=== PATIENT | female | born 1965 | race African-American/Black ===

== ENCOUNTER 2018-11-25 16:02 | Observation (INO) | payer OTHER ==
--- OUTSIDE RECORDS SUMMARY | 2018-11-25 16:06 | XMS REPORT | Continuity of Care Document ---
:1965 Author Organization Interface Problems Problem Status Onset Classification Date Comments Source Date Reported UNK Active 09/07/[address] UNK Active 09/07/19 [place] [address] Micky Z12.39 - Active 08/21/19 OPID ENCOUNTER FOR [address] [place] [address] OTH SCREENING FO Z12.31 - ENCNTR Active 06/17/20 OPID SCREEN MAMMOGRAM [address] [place] [address] FOR MA 786.59-CHEST Active 01/25/20 PAIN/789.07-ABD 15 [facility] PAIN/789.04 786.59 789.07 Active 01/20/20 564.[address] [place] [address] Discharge 01/17/20 01/19/2015 Diagnosis: [address] [place] [address] Atypical chest pain CHEST PAIN Active 01/17/[address] Loss of Active 04/14/20 Problem 10/05/2016 Data OPID hair<sup>3</sup> 14 migrated [facility] from [facility] on 12/28/14. Menopausal Active 04/14/20 Problem 10/05/2016 Data OPID flushing<sup>4</ 14 migrated [facility] sup> from [facility] on 12/28/14. LUMBAR SPRAIN Active 10/20/19 Condition 10/22/2013 Medical AND STRAIN 14 Group Migraine<sup>5</ Active 08/05/19 Problem 10/05/2016 Data OPID sup> 14 migrated [facility] from [facility] on 12/28/14. MIGRAINE Active 08/05/19 Condition 10/22/2013 Medical HEADACHE 14 Group HEADACHE Inactive 06/17/20 Condition 10/22/2013 Medical 13 Group Benign essential Active 05/29/20 Problem 10/05/2016 Data OPID hypertension<sup 13 migrated [facility] >1</sup> from [facility] on 12/28/14. Benign Active 05/29/20 Problem 10/05/2016 Data OPID paroxysmal 13 migrated [place], positional from [facility], vertigo<sup>2</s [facility] [place] up> on 12/28/14. BENIGN Active 05/29/20 Condition 10/22/2013 Medical PAROXYSMAL 13 Group POSITIONAL VERTIGO HYPERTENSION, Active 05/29/20 Condition 10/22/2013 Medical BENIGN 13 Group ESSENTIAL, UNCONTROLLED GERD (<span Resolved Problem 10/05/2016 OPID ID="[id number]" [facility] >Confirmed</span [place] >) HLD (<span Resolved Problem 10/05/2016 OPID ID="[id number]" [facility] >Confirmed</span [place] >) Hypertension Active Problem 10/05/2016 OPID [place],[facility] Obesity Active Problem 10/05/2016 OPID [place],[facility] Hypokalemia Resolved Problem 01/19/2015 [facility] Tonsillectomy Resolved Problem 01/19/2015 [facility] BMI Active Problem 10/05/2016 34.0-34.9,adult [place], OPID [place] Breast cancer Active Problem 10/05/2016 screening [place] [place] Well adult exam Active Problem 10/05/2016 [facility] LUMBAR Active SMR STRAIN-UDU [facility] CHEST PAIN NOS Active [facility] Medications Medication Details Route Status Patient Ordering Order Source Instructions Provider Date Sodium Chloride 1,000 mL, Inactive 0.154 MEQ/ML Rate: 2016 [place] Injectable ml/hr, Infuse Solution over: 47.6 hr, Route: IV, Dosing Weight 78.182 kg, Total Volume: 1,000, 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 date: 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, 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: 30 day, Stop date: 10/21/16 6:29:00 CDT Acetaminophen 325 1 tab, Route: Inactive MG / Hydrocodone PO, Drug Form: 2014 [facility] Bitartrate 5 MG TAB, Dosing Oral Tablet [Stewart Weight 72.727, 5/325] kg, ONCE, STAT, Start date: 01/16/15 13:02:00, Stop date: 01/16/15 13:02:00 GI cocktail 30 mL, Route: Inactive PO, Dosing 2014 [facility] Weight 72.727, kg, ONCE, STAT, Start date: 01/16/15 12:36:00, Stop date: 01/16/15 12:36:00 Potassium Chloride 40 mEq, 2 tab, Inactive 20 MEQ Extended Route: PO, 2014 [place] Release Tablet Drug form: ERTAB, ONCE, Dosing Weight 72.727, kg, Priority: STAT, Start date: 01/16/15 12:34:00, Stop date: 01/16/15 12:34:00 Zofran 4 mg, Route: Inactive IVP, Drug 2014 [facility] form: INJ, ONCE, Dosing Weight 72.727, kg, Priority: STAT, Start date: 01/16/15 11:33:00, Stop date: 01/16/15 11:33:00 Morphine 4 mg, Route: Inactive IVP, Drug 2014 [facility] form: INJ, ONCE, Dosing Weight 72.727, kg, Priority: STAT, Start date: 01/16/15 11:33:00, Stop date: 01/16/15 11:33:00 Aspirin 81 MG 324 mg, 4 tab, Inactive Chewable Tablet Route: CHEW, 2014 [facility] Drug form: CHEWTAB, ONCE, Dosing Weight 72.727, kg, Priority: STAT, Start date: 01/16/15 11:19:00, Stop date: 01/16/15 11:19:00Notes: Take with food. Sodium Chloride 1,000 mL, 1000 Inactive 0.154 MEQ/ML ml/hr, Infuse 2014 [facility] Injectable Over: 1 hr, Solution Route: IV, 1,000, Drug form: INJ, ONCE, Priority: STAT, Dosing Weight 72.727 kg, Start date: 01/16/15 11:19:00, Duration: 1 doses or times, Stop date: 01/16/15 11:19:00 Saline Flush 0.9% 10 mL, Route: No Longer IVP, Drug Active 2014 [facility] Form: INJ, Dosing Weight 72.727, kg, PRN, PRN Line Flush, Start date: 01/16/15 11:18:00, Duration: 30 day, Stop date: 02/15/15 11:17:00Notes: (Same as: BD Posiflush) Potassium Chloride 20 mEq=1 tab, Active 20 MEQ Extended PO, BID, 0 2014 [facility] Release Tablet Refill(s) [Klor-Con] Chlorthalidone 25 mg, PO, Active Daily, 0 2014 Refill(s) lisinopril 20 mg 20 mg=1 tab, Active oral tablet PO, BID, 0 2014 Refill(s) pneumococcal 0.5 mL, Route: Inactive capsular IM, Drug Form: 2014 polysaccharide INJ, Daily, type 1 vaccine / Start date: pneumococcal 01/02/15 capsular 9:00:00, polysaccharide Duration: 1 type 10A vaccine / doses or pneumococcal times, Stop capsular date: 01/02/15 polysaccharide 9:00:00Notes: type 11A vaccine / (Same as: pneumococcal Pneumovax 23) capsular Refrigerate polysaccharide type 12F vaccine / pneumococcal capsular polysacchar Protonix 40 mg, Route: Inactive IVP, Drug 2014 [facility] form: INJ, Daily, Dosing Weight 72.727, kg, Start date: 01/02/15 9:00:00, Duration: 30 day, Stop date: 01/31/15 9:00:00Notes: For IV push reconstitute with 10 ml 0.9% sodium chloride and push over 2 minutes. (Same as: Protonix) Aspirin 81 mg, 1 tab, Inactive Route: PO, 2014 [facility] Drug form: ECTAB, Daily, Dosing Weight 72.727, kg, Start date: 01/02/15 9:00:00, Duration: 30 day, Stop date: 01/31/15 9:00:00Notes: Do not crush or chew. (Same As: Ecotrin) Zofran 4 mg, 2 mL, No Longer Route: IV, Active 2014 [facility] Drug form: INJ, Q6H, Dosing Weight 72.727, kg, PRN Nausea, Start date: 01/01/15 23:19:00, Duration: 30 day, Stop date: 01/31/15 23:18:00Notes: (Same as: Zofran) MEDICATION WASTE Product Size: 4 mg Product Wasted: ___ mg Saline Flush 0.9% 10 ml, Route: No Longer IVP, Drug Active 2014 [facility] Form: INJ, Dosing Weight 72.727, kg, Q12H, Start date: 01/01/15 21:00:00, Duration: 30 day, Stop date: 01/31/15 9:00:00Notes: (Same as: BD Posiflush) Lovenox 70 mg, 0.7 mL, No Longer Route: SUB-Q, Active 2014 [facility] Drug form: INJ, [id number], Dosing Weight 72.727, kg, Start date: 01/01/15 18:00:00, Duration: 30 day, Stop date: 01/31/15 6:00:00Notes: Nurse to ensure documentation of patient education per anticoagulatio n policy. (Same as: Lovenox) Ambien 5 mg, 1 tab, No Longer Route: PO, Active 2014 [facility] Drug form: TAB, Bedtime, Dosing Weight 72.727, kg, PRN Insomnia, Start date: 01/01/15 17:36:00, Duration: 30 day, Stop date: 01/31/15 17:35:00Notes: (Same As: Ambien) Tylenol 650 mg, 2 tab, No Longer Route: PO, Active 2014 [facility] Drug form: TAB, Q6H, Dosing Weight 72.727, kg, PRN Pain Score 1-5, Start date: 01/01/15 17:36:00, Duration: 30 day, Stop date: 01/31/15 17:35:00Notes: Do not exceed 4 gm/day. (Same as: Tylenol) Ondansetron 0.8 4 mg, 5 mL, No Longer MG/ML Oral Route: PO, Active 2014 [facility] Solution [Zofran] Drug form: SOLN, Q4H, Dosing Weight 72.727, kg, PRN Nausea & Vomiting, Priority: STAT, Start date: 01/01/15 17:36:00, Duration: 30 day, Stop date: 01/31/15 17:35:00Notes: (Same as: Zofran) Saline Flush 0.9% 10 ml, Route: No Longer IVP, Drug Active 2014 [facility] Form: INJ, Dosing Weight 72.727, kg, PRN, PRN Line Flush, Start date: 01/01/15 15:40:00, Duration: 30 day, Stop date: 01/31/15 15:39:00Notes: (Same as: BD Posiflush) Nitroglycerin 0.4 mg, 1 tab, No Longer Route: SL, Active 2014 [facility] Drug form: TAB, Q5Min, Dosing Weight 72.727, kg, PRN Chest Pain, Start date: 01/01/15 15:40:00, Duration: 3 doses or times, Stop date: Limited # of timesNotes: (Same as:Nitroquick, Nitrostat) "Do Not Crush" Sublingual tablet Morphine 2 mg, 1 mL, Inactive Route: IVP, 2014 [facility] Drug form: INJ, Q15Min, Dosing Weight 72.727, kg, PRN Chest Pain, Start date: 01/01/15 15:40:00, Duration: 2 doses or times, Stop date: Limited # of timesNotes: (Same as:MORPhine Sulfate) Zofran 4 mg, Route: Inactive IVP, Drug 2014 [facility] form: INJ, ONCE, Dosing Weight 72.727, kg, Priority: STAT, Start date: 01/01/15 13:07:00, Stop date: 01/01/15 13:07:00 Morphine 4 mg, Route: Inactive IVP, Drug 2014 [facility] form: INJ, ONCE, Dosing Weight 72.727, kg, Priority: STAT, Start date: 01/01/15 13:06:00, Stop date: 01/01/15 13:06:00 Flexeril 10 mg, Route: Inactive PO, ONCE, 2014 Dosing Weight 72.727, kg, Priority: STAT, Start date: 01/01/15 11:29:00, Stop date: 01/01/15 11:29:00 Ketorolac 30 mg, Route: Inactive IVP, Drug 2014 [facility] form: INJ, ONCE, Dosing Weight 72.727, kg, Priority: STAT, Start date: 01/01/15 11:28:00, Stop date: 01/01/15 11:28:00 Aspirin 324 mg, Route: Inactive PO, ONCE, 2014 Dosing Weight 72.727, kg, Priority: STAT, Start date: 01/01/15 11:08:00, Stop date: 01/01/15 11:08:00 Saline Flush 0.9% 10 mL, Route: Inactive IVP, Drug 2014 Form: INJ, Dosing Weight 72.727, kg, PRN, PRN Line Flush, Start date: 01/01/15 11:08:00, Duration: 30 day, Stop date: 01/31/15 11:07:00Notes: (Same as: BD Posiflush) METHYLPREDNISOLONE Take as Active 10/19[facility] Medical (MARCI) 4 MG TABS directed 2013 Group NAPROXEN 500 MG 1 tablet twice Active 10/19[facility] Medical TABS daily as 2013 Group needed for pain BACLOFEN 10 MG 1 tablet every Active 10/19[facility] Medical TABS 8 hours as 2013 Group needed for muscle spasms or tension LISINOPRIL 20 MG Two tabs PO Active 07/16[facility] Medical TABS qday 2012 Group CARVEDILOL 25 MG One tab PO BID Active Medical TABS 2012 Group CHLORTHALIDONE 25 One tab PO Active Medical MG TABS qday 2012 Group ANTIVERT 25 MG One tab PO TID No Longer Medical TABS prn vertigo Active 2012 Group ZOFRAN 4 MG TABS One tab PO q6 No Longer Medical hous prn Active 2012 Group nausea FLUTICASONE 2 sprays in No Longer Medical PROPIONATE 50 each nostril Active 2012 Group MCG/ACT SUSP qam1 ANTIPYRINE-BENZOCA No Longer Medical INE 54-14 MG/ML Active 2012 Group SOLN Allergies, Adverse Reactions, Alerts Substance Category Reaction Severity Reaction Status Date Comments Source type Reported Immunizations Immunization Date Site Status Last Comments Source Given Updated influenza virus Left completed [facility] OPID vaccine, 5 Deltoid [facility] inactivated [place] pneumococcal Left completed [place] OPID 23-valent 5 deltoid [facility] vaccine [employer] Results Order Name Results Value Reference Date Interpretation Comments Source Range Digital Digital - DIGITAL MAMMO SCREEN THEODORE MA W YOLANDA 10/02 - OPID Mammo Mammo Screen /2016 - [place] Screen Theodore Theodore MA w BILATERAL DIGITAL SCREENING MAMMOGRAM 3D/2D WITH CAD: 10/02 DANIEL bravo yolanda yolanda 2D digital mammographic images and 3D digital tomosynthesis images were obtained in the CC and MLO projections. Read by: Neal Luu MD Dictated Date/time: 10/02/16 15:10 Current study was evaluated with a Computer Aided Detection (CAD) system. Electronically Signed by: Neal Luu MD 02/11 15:10 FINAL REPORT Comparison is made to exam dated: 06/30/2015 mammogram - [facility]. The tissue of both breasts is extremely dense. This may lower the sensitivity of mammography. No significant masses, calcifications, or other findings are seen in either breast. There has been no significant interval change. IMPRESSION: NEGATIVE There is no mammographic evidence of malignancy. A 1 year screening mammogram is recommended. Professional services are provided by the [facility] of Diagnostic Imaging. Eliseo Erwin M.D. cm/penrad:10/02/2016 15:10:37 Dental Office Coordinator: Nhi Sherwood [facility] This exam was dictated and interpreted by [id number] for EVERTON Huffman, 15. letter sent: Normal [place] Mammogram BI-RADS: 1 Negative URINE CHEM U Preg Negative Negative 09/21 [place] (09/21/16 6:19 AM) ELECTROLYT AGAP 9.7 meq/L 10.0 - 09/17 MH ES 20.0 [place] ELECTROLYT Chloride Lvl 108 meq/L 95 - 109 09/17 ES [place] ELECTROLYT Sodium Lvl 144 meq/L 135 - 145 09/17 ES [place] ELECTROLYT Potassium 3.7 meq/L 3.5 - 5.1 09/17 ES Lvl [place] ELECTROLYT CO2 30 meq/L 24 - 32 09/17 ES [place] URINE CHEM U Preg Negative Negative 09/17 [place] (09/17/16 1:50 PM) Digital Digital - DIGITAL MAMMO SCREENING THEODORE MA 06/30 - OPID Mammo Mammo /2014 - [place] Screening Screening BILATERAL FIRST EVER DIGITAL SCREENING MAMMOGRAM WITH CAD : 06/30/2015 Theodore Jaimes MA CLINICAL: Screening. Read by: Neal Luu MD Dictated Date/time: 07/01/15 08:49 Electronically Signed by: Neal uLu MD 07/01/15 08:49 FINAL REPORT Current study was evaluated with a Computer Aided Detection (CAD) system. There are no comparison films available as this is the patient's baseline mammogram. The tissue of both breasts is extremely dense. This may lower the sensitivity of mammography. No significant masses, calcifications, or other findings are seen in either breast. IMPRESSION: NEGATIVE There is no mammographic evidence of malignancy. A 1 year screening mammogram is recommended. Eliseo Erwin M.D. cm/penrad:07/01/2015 08:49:46 Dental Office Coordinator: Fransisca WELCH(R)(M), [facility] This exam was dictated and interpreted by [id number] for EVERTON Huffman, 15. letter sent: Normal exam Mammogram BI-RADS: 1 Negative URINE AND UA <=1.0 0.1 - 1.0 01/16 STOOL Urobilinogen mg/dL [facility] URINE AND UA Color Ltyellow 01/16 STOOL [facility] URINE AND UA WBC null 0 - 5 01/16 STOOL [facility] URINE AND UA Sq Epi Occasional Few /LPF 01/16 [facility] /LPF /2014 [place] URINE AND UA Leuk Est Negative Negative 01/16 STOOL [facility] (01/16/15 12:13 PM) URINE AND UA Nitrite Negative Negative 01/16 STOOL [facility] (01/16/15 12:13 PM) URINE AND UA Blood Negative Negative 01/16 [facility] (01/16/15 12:13 PM) URINE AND UA Bacteria Occasional None Seen 01/16 [facility] /HPF /HPF /2014 [place] URINE AND UA Glucose Negative Negative 01/16 [facility] mg/dL mg/dL [place] URINE AND UA Protein Negative Negative 01/16 [facility] mg/dL mg/dL [place] URINE AND UA pH 7.0 5.0 - 8.0 01/16 STOOL [place] URINE AND UA Spec Grav 1.004 <=1.030 01/16 STOOL [facility] URINE AND UA Turbidity Clear Clear 01/16 STOOL [facility] (01/16/15 12:13 PM) URINE AND UA Bili Negative Negative 01/16 STOOL [facility] *NA* (01/16/15 12:13 PM) URINE AND UA Ketones Negative Negative 01/16 STOOL mg/dL mg/dL [facility] URINE CHEM U Preg Negative Negative 01/16 [facility] (01/16/15 12:13 PM) CARDIAC CK MB Index null 0.0 - 2.5 01/16 ENZYMES [facility] CARDIAC Total CK 161 unit/L 12 - 191 01/16 ENZYMES [facility] CARDIAC Troponin-I null 0.00 - 01/16 [facility] 0.40 [facility] CARDIAC CK MB null 0.5 - 3.6 01/16 [facility] CHEM PANEL eGFR 49 01/16 1Result Comment: The eGFR is calculated using the CKD-EPI formula. In most young, healthy individuals the eGFR will be >90 mL/ min/1.73m2. The eGFR declines with age. An eGFR of 60-89 may be normal in mL/min/1.7 /2014 some populations, particularly the elderly, for whom the CKD-EPI formula has not been extensively validated. Use of the eGFR is not recommended in the following populations: [facility] 3m2 Individuals with unstable creatinine concentrations, including patients and those with serious co-morbid conditions. Patients with extremes in muscle mass or diet. The data above are obtained from the National Kidney Disease Education Program (NKDEP) which additionally recommends that when the eGFR is used in patients with extremes of body mass index for purposes of drug dosing, the eGFR should be multiplied by the estimated BMI. CHEM PANEL Bili Total 0.4 mg/dL 0.2 - 1.3 01/16 [facility] CHEM PANEL Alk Phos 69 unit/L 39 - 136 01/16 [facility] CHEM PANEL ALT 19 unit/L 0 - 65 01/16 [facility] CHEM PANEL AST 18 unit/L 0 - 37 01/16 [facility] CHEM PANEL AGAP 10.3 meq/L 10.0 - 01/16 20.0 [facility] CHEM PANEL Globulin 3.7 g/dL 2.0 - 4.0 01/16 [facility] CHEM PANEL B/C Ratio 11 6 - 25 01/16 [facility] CHEM PANEL A/G Ratio 1.0 0.7 - 1.6 01/16 [facility] CHEM PANEL Albumin Lvl 3.7 g/dL 3.5 - 5.0 01/16 [facility] CHEM PANEL Total 7.4 g/dL 6.4 - 8.4 01/16 [facility] CHEM PANEL Glucose Lvl 86 mg/dL 70 - 99 01/16 2Interpretive Data: Adult reference range values reflect the clinical guidelines of the [place] [employer]. [facility] CHEM PANEL CO2 28 meq/L 24 - 32 01/16 [facility] CHEM PANEL Creatinine 1.3 mg/dL 0.5 - 1.4 01/16 Lvl /2014 [facility] CHEM PANEL BUN 14 mg/dL 7 - 22 01/16 [facility] CHEM PANEL Sodium Lvl 139 meq/L 135 - 145 01/16 [facility] CHEM PANEL Calcium Lvl 9.2 mg/dL 8.5 - 10.5 01/16 [facility] CHEM PANEL Chloride Lvl 104 meq/L 95 - 109 01/16 [facility] CHEM PANEL Potassium 3.3 meq/L 3.5 - 5.1 01/16 Lvl /2015 [facility] HEMATOLOGY Segs 44.1 % 45.0 - 01/16 MH 75.0 /2014 [facility] HEMATOLOGY Lymphocytes 43.4 % 20.0 - 01/16 MH 40.0 /2014 [facility] HEMATOLOGY Segs-Bands # 2.7 K/CMM 1.5 - 8.1 01/16 [facility] HEMATOLOGY Monocytes # 0.6 K/CMM 0.0 - 0.8 01/16 [facility] HEMATOLOGY Eosinophils 0.1 K/CMM 0.0 - 0.5 01/16 MH # /2015 [facility] HEMATOLOGY Lymphocytes 2.7 K/CMM 1.0 - 5.5 01/16 MH # /2014 [facility] HEMATOLOGY Basophils 0.7 % 0.0 - 1.0 01/16 [facility] HEMATOLOGY Monocytes 10.1 % 2.0 - 12.0 01/16 [facility] HEMATOLOGY Eosinophils 1.7 % 0.0 - 4.0 01/16 /2014 [facility] HEMATOLOGY MCV 87.3 fL 80.0 - 01/16 MH 98.0 /2014 [facility] HEMATOLOGY Hgb 12.6 g/dL 12.0 - 01/16 16.0 /2014 [facility] HEMATOLOGY Hct 36.5 % 36.0 - 01/16 48.0 /2014 [facility] HEMATOLOGY RDW 12.9 % 11.5 - 01/16 14.5 /2014 [facility] MCH 30.1 pg 27.0 - 01/16 31.0 /2014 [facility] Platelet 281 K/CMM 133 - 450 01/16 /2014 [facility] MPV 8.2 fL 7.4 - 10.4 01/16 [facility] MCHC 34.5 g/dL 32.0 - 01/16 36.0 /2014 [facility] WBC 6.1 K/CMM 3.7 - 10.4 01/16 [facility] RBC 4.19 M/CMM 4.20 - 01/16 5.40 /2014 [facility] INR 0.94 0.85 - 01/16 3Interpretive Data: RECOMMENDED RANGES FOR PROTIME INR: 1. 2.0-3.0 for most medical and surgical thromboembolic states. [facility] 2.5-3.5 for artificial heart valves and recurrent embolism. INR SHOULD BE USED ONLY FOR PATIENTS ON STABLE ANTICOAGULANT THERAPY. HEMATOLOGY PT 12.6 s 12.0 - 01/16 14.7 /2014 [facility] HEMATOLOGY PTT 31.8 s 22.9 - 01/16 4Interpretive 35.8 /2014 Data: Heparin [facility] Therapeutic Range: 57 - 92 Seconds Chest Chest 1view NAME: JAROCHO PRICE 01/16 - 1view DX DX - [facility] : 1965 SEX: F Ordering Physician: Sree Camargo Read by: Joshua Darnell MD Dictated Date/time: 01/16/15 11:33 Electronically Signed by: Joshua Darnell MD 01/16/15 11:33 FINAL REPORT Chest 1view : Jan 16, 2015 11:18:00 AM. CLINICAL INDICATION: Chest pain. Comparison Examination: 01/01/2015. FINDINGS: Cardiac and mediastinal structures are stable. No focal infiltrate identified within the lungs, no edema and no pneumothorax. SL: 14 ENDOCRINOL S Preg Negative Negative 01/02 OG [facility] *NA* (01/02/15 8:53 AM) Cardiac Cardiac Test Location is SE 01/02 - SPECT SPECT multi /2014 - [facility] studies NM studies NM The patient underwent combined treadmill and Lexiscan Cardiolite stress testing according to the stress/rest protocol. The patient was then injected with 11 mCi of Cardiolite at stress and 33 mCi of Cardiolite at rest. Read by: Buck Ramirez MD Dictated Date/time: 01/02/15 16:38 Electronically Signed by: Buck Ramirez MD 01/02/15 16:39 FINAL REPORT Transverse, coronal, and sagittal images were obtained. Review of stress and rest images revealed normal myocardial perfusion. Ejection fraction by SPECT analysis was 66%. The baseline ECG showed NSR. No significant ECG or hemodynamic changes were observed. In summary, this represents a normal myocardial perfusion study with normal LV function. LIPIDS VLDL 23 01/02 /2014 [facility] LIPIDS LDL 82 mg/dL <=99 mg/dL 01/02 (Calculated) [facility] LIPIDS CHD Risk 3.33 3.90 - 01/02 5.80 /2014 [facility] LIPIDS Trig 114 mg/dL <=149 / mg/dL /2014 [facility] LIPIDS Chol 150 mg/dL <=199 / mg/dL /2014 [facility] LIPIDS HDL 45 mg/dL >=61 mg/dL 01/02 /2014 [facility] CARDIAC Troponin-I null 0.00 - 01/02 [facility] 0.40 /2014 [facility] CARDIAC Total CK 51 unit/L - 01/02 ENZYMES /2014 [facility] CARDIAC Total CK 55 unit/L - 01/01 ENZYMES /2014 [facility] CARDIAC Troponin-I null 0.00 - 01/01 [facility] 0.40 /2014 [facility] LIPIDS VLDL 16 01/01 /2014 [facility] LIPIDS CHD Risk 3.35 3.90 - 01/01 5.80 /2014 [facility] LIPIDS HDL 49 mg/dL >=61 mg/dL 01/01 /2014 [facility] LIPIDS Chol 164 mg/dL <=199 / MH mg/dL /2014 [facility] LIPIDS Trig 81 mg/dL <=149 / MH mg/dL /2014 [facility] LIPIDS LDL 99 mg/dL <=99 mg/dL 01/01 MH (Calculated) /2014 [facility] CARDIAC CK MB null 0.5 - 3.6 01/01 ENZYMES /2014 [facility] CARDIAC Total CK 70 unit/L - 01/01 ENZYMES /2014 [facility] CARDIAC Troponin-I null 0.00 - 01/01 [facility] 0.40 /2014 [facility] CARDIAC BNP 4 pg/mL <=100 01/01 3Interpretive Data: Elevated results are in line with increasing severity of ENZYMES pg/mL /2014 congestive heart failure. Minor elevations between 100 and 300 [place] may be seen with Myocardial Ischemia, Sodium retaining drugs, and compensated/treated heart failure. CARDIAC CK MB Index null 0.0 - 2.5 01/01 ENZYMES [facility] CHEM PANEL Phosphorus 2.6 mg/dL 2.5 - 4.5 01/01 [facility] CHEM PANEL Magnesium 2.2 mg/dL 1.8 - 2.4 01/01 Lvl /2014 [facility] CHEM PANEL A/G Ratio 1.0 0.7 - 1.6 01/01 [facility] CHEM PANEL B/C Ratio 12 6 - 25 01/01 [facility] CHEM PANEL Globulin 3.6 g/dL 2.0 - 4.0 01/01 [facility] CHEM PANEL AGAP 10.8 meq/L 10.0 - 01/01 20.0 [facility] CHEM PANEL Bili Total 0.5 mg/dL 0.2 - 1.3 01/01 [facility] CHEM PANEL CO2 32 meq/L 24 - 32 01/01 [facility] CHEM PANEL BUN 17 mg/dL 7 - 22 01/01 [facility] CHEM PANEL Glucose Lvl 71 mg/dL 70 - 99 01/01 2Interpretive Data: Adult reference range values reflect the clinical guidelines of the [place] [employer]. [facility] CHEM PANEL Alk Phos 69 unit/L 39 - 136 01/01 [facility] CHEM PANEL ALT 16 unit/L 0 - 65 01/01 [facility] CHEM PANEL AST 15 unit/L 0 - 37 01/01 [facility] CHEM PANEL Total 7.2 g/dL 6.4 - 8.4 01/01 Protein [facility] CHEM PANEL Albumin Lvl 3.6 g/dL 3.5 - 5.0 01/01 [facility] CHEM PANEL eGFR 44 01/01 1Result Comment: The eGFR is calculated using the CKD-EPI formula. In most young, healthy individuals the eGFR will be >90 mL/ min/1.73m2. The eGFR declines with age. An eGFR of 60-89 may be normal in mL/min/1.7 /2014 some populations, particularly the elderly, for whom the CKD-EPI formula has not been extensively validated. Use of the eGFR is not recommended in the following populations: [facility] 3m2 Individuals with unstable creatinine concentrations, including patients and those with serious co-morbid conditions. Patients with extremes in muscle mass or diet. The data above are obtained from the National Kidney Disease Education Program (NKDEP) which additionally recommends that when the eGFR is used in patients with extremes of body mass index for purposes of drug dosing, the eGFR should be multiplied by the estimated BMI. CHEM PANEL Calcium Lvl 9.0 mg/dL 8.5 - 10.5 01/01 [facility] CHEM PANEL Potassium 3.8 meq/L 3.5 - 5.1 01/01 [facility] CHEM PANEL Sodium Lvl 141 meq/L 135 - 145 01/01 [facility] CHEM PANEL Creatinine 1.4 mg/dL 0.5 - 1.4 01/01 Lv [facility] CHEM PANEL Chloride Lvl 102 meq/L 95 - 109 01/01 [facility] HEMATOLOGY INR 1.06 0.85 - 01/01 4Interpretive Data: RECOMMENDED RANGES FOR PROTIME INR: 1. 2.0-3.0 for most medical and surgical thromboembolic states. [facility] 2.5-3.5 for artificial heart valves and recurrent embolism. INR SHOULD BE USED ONLY FOR PATIENTS ON STABLE ANTICOAGULANT THERAPY. HEMATOLOGY PTT 30.8 s 22.9 - 01/01 5Interpretive 35.8 /2014 Data: Heparin [facility] Therapeutic Range: 57 - 92 Seconds HEMATOLOGY PT 13.8 s 12.0 - 01/01 MH 14.7 [facility] HEMATOLOGY MPV 7.5 fL 7.4 - 10.4 01/01 [facility] HEMATOLOGY Platelet 294 K/CMM 133 - 450 01/01 [facility] HEMATOLOGY RDW 12.4 % 11.5 - 01/01 MH 14.5 [facility] HEMATOLOGY MCHC 33.4 g/dL 32.0 - 01/01 MH 36.0 [facility] HEMATOLOGY Hgb 13.3 g/dL 12.0 - 01/01 MH 16.0 [facility] HEMATOLOGY RBC 4.54 M/CMM 4.20 - 01/01 MH 5.40 /2014 [facility] HEMATOLOGY Hct 39.8 % 36.0 - 01/01 MH 48.0 /2014 [facility] HEMATOLOGY WBC 5.6 K/CMM 3.7 - 10.4 01/01 /2014 [facility] HEMATOLOGY MCH 29.3 pg 27.0 - 01/01 MH 31.0 /2014 [facility] HEMATOLOGY MCV 87.6 fL 80.0 - 01/01 MH 98.0 /2014 [facility] HEMATOLOGY Basophils 0.8 % 0.0 - 1.0 01/01 /2014 [facility] HEMATOLOGY Segs-Bands # 2.7 K/CMM 1.5 - 8.1 01/01 [facility] HEMATOLOGY Lymphocytes 2.2 K/CMM 1.0 - 5.5 01/01 MH # /2014 [facility] HEMATOLOGY Monocytes # 0.6 K/CMM 0.0 - 0.8 01/01 /2014 [facility] HEMATOLOGY Eosinophils 0.9 % 0.0 - 4.0 01/01 [facility] HEMATOLOGY Eosinophils 0.1 K/CMM 0.0 - 0.5 01/01 MH # /2014 [facility] HEMATOLOGY Lymphocytes 39.4 % 20.0 - 01/01 MH 40.0 /2014 [facility] HEMATOLOGY Segs 47.7 % 45.0 - 01/01 MH 75.0 /2014 [facility] HEMATOLOGY Monocytes 11.2 % 2.0 - 12.0 01/01 [facility] URINE AND UA <=1.0 0.1 - 1.0 01/01 [facility] Urobilinogen mg/dL /2014 [facility] URINE AND UA Color Ltyellow 01/01 [facility] URINE AND UA Leuk Est Negative Negative 01/01 [facility]OOL [facility] (01/01/15 12:01 PM) URINE AND UA RBC null 0 - 2 01/01 [facility] URINE AND UA Nitrite Negative Negative 01/01 [facility]OOL [facility] (01/01/15 12:01 PM) URINE AND UA Sq Epi Occasional Few /LPF 01/01 [facility] /LPF /2014 [facility] URINE AND UA Bacteria Occasional None Seen 01/01 [facility] /HPF /HPF /2014 [facility] URINE AND UA Glucose Negative Negative 01/01 [facility] mg/dL mg/dL [facility] URINE AND UA Bili Negative Negative 01/01 [facility]OOL [facility] *NA* (01/01/15 12:01 PM) URINE AND UA Ketones Negative Negative 01/01 [facility] mg/dL mg/dL [facility] URINE AND UA Blood Negative Negative 01/01 [facility] /2014 [facility] (01/01/15 12:01 PM) URINE AND UA Turbidity Clear Clear 01/01 [facility]OOL [facility] (01/01/15 12:01 PM) URINE AND UA Protein Negative Negative 01/01 [facility] mg/dL mg/dL [facility] URINE AND UA Spec Grav 1.006 <=1.030 01/01 [facility]OOL [facility] URINE AND UA pH 8.0 5.0 - 8.0 01/01 STOOL /2014 [facility] Chest Chest 1view CHEST RADIOGRAPH SINGLE VIEW 01/01 - 1view DX - [facility] INDICATION: Chest pain Read by: Osman Salinas MD Dictated Date/time: 01/01/15 12:18 Electronically Signed by: Osman Salinas MD 01/01/15 12:18 FINAL REPORT COMPARISON: None IMPRESSION: No acute intrathoracic abnormalities are visualized. SL: 16 Vital Signs Vital Sign Value Date Comments Source Systolic (mm Hg) 142 09/21/2016 [facility] Diastolic (mm Hg) 94 09/21/2016 [facility] Respitory Rate 19 09/21/2016 [facility] Respitory Rate 16 09/21/2016 [facility] Systolic (mm Hg) 147 09/21/2016 [facility] Diastolic (mm Hg) 91 09/21/2016 [facility] Respitory Rate 11 09/21/2016 [facility] Systolic (mm Hg) 112 09/21/2016 [facility] Diastolic (mm Hg) 78 09/21/2016 [facility] Heart Rate 61 09/17/2016 [facility] Temperature Oral (F) 98.9 F 09/17/2016 [facility] BMI Calculated 34.81 09/17/2016 [facility] Height 149.86 cm 09/17/2016 [facility] Weight 78.182 09/17/2016 [facility] Heart Rate 58 01/16/2015 [facility] Systolic (mm Hg) 150 01/16/2015 [facility] Diastolic (mm Hg) 96 01/16/2015 [facility] Systolic (mm Hg) 155 01/16/2015 [facility] Diastolic (mm Hg) 105 01/16/2015 [facility] Heart Rate 77 01/16/2015 [facility] Respitory Rate 20 01/16/2015 [facility] Height 149.86 cm 01/16/2015 [facility] Temperature Oral (F) 97.9 F 01/16/2015 [facility] BMI Calculated 32.38 01/16/2015 [facility] Systolic (mm Hg) 168 01/16/2015 [facility] Diastolic (mm Hg) 136 01/16/2015 [facility] Weight 72.727 01/16/2015 [facility] Respitory Rate 16 01/02/2015 [facility] Heart Rate 63 01/02/2015 [facility] Systolic (mm Hg) 131 01/02/2015 [facility] Diastolic (mm Hg) 83 01/02/2015 [facility] Temperature Oral (F) 98.0 F 01/02/2015 [facility] BMI Calculated 32.38 01/02/2015 [facility] Weight 72.727 01/02/2015 [facility] Height 149.86 cm 01/02/2015 [facility] Systolic (mm Hg) 121 01/02/2015 [facility] Diastolic (mm Hg) 77 01/02/2015 [facility] Respitory Rate 16 01/02/2015 [facility] Heart Rate 53 01/02/2015 [facility] Temperature Oral (F) 97.5 F 01/02/2015 [facility] Heart Rate 61 01/02/2015 [facility] Respitory Rate 18 01/02/2015 [facility] Temperature Oral (F) 97.4 F 01/02/2015 [facility] Systolic (mm Hg) 105 01/02/2015 [facility] Diastolic (mm Hg) 65 01/02/2015 [facility] Weight 72.727 01/01/2015 [facility] BMI Calculated 32.38 01/01/2015 [facility] Height 149.86 cm 01/01/2015 [facility] Height 149.86 cm 01/01/2015 [facility] Weight 72.727 01/01/2015 [facility] BMI Calculated 32.38 01/01/2015 [facility] Weight 171 10/19/2013 [facility] Respitory Rate 18 10/19/2013 [facility] Temperature Oral (F) 96.9 F 10/19/2013 [facility] Heart Rate 46 10/19/2013 [facility] Systolic (mm Hg) 127 10/19/2013 [facility] Diastolic (mm Hg) 72 10/19/2013 [facility] Weight 162 06/17/2013 [facility] Temperature Oral (F) 96.6 F 06/17/2013 [facility] Systolic (mm Hg) 145 06/17/2013 [facility] Diastolic (mm Hg) 86 06/17/2013 [facility] Heart Rate 47 06/17/2013 [facility] Height 60.5 05/29/2013 [facility] Weight 163 05/29/2013 [facility] Temperature Oral (F) 96.9 F 05/29/2013 [facility] Systolic (mm Hg) 195 05/29/2013 [facility] Diastolic (mm Hg) 101 05/29/2013 [facility] Heart Rate 53 05/29/2013 [facility] Encounters Location Location Encounter Encounter Reason Attending ADM DC Status Source Details Type Number For Provider Date Date Visit [facility] [id number] [facility] 10/19 10[facility] [id number] MD L[facility]pez /[facility] Outpatient [id number] _MAPID: Kam 10/19 10/20 Micky [id number] [place] [id number] [facility] [address] [facility] OP Therapy [id number] Fidencio Dawn 10/21 11/20 [facility] Lab Report [id number] Fidencio 10/22 10/22 Micky [id number] MD López /2013 [facility] Inpatient [id number] Buck 01/01 01/02 [place] 0 Tayyan /2014 [facility] EC [id number] Sree 01/16 01/16 [place] Emergency 1 [place] /2014 [facility] Outpatient [id number] RAE 06/06 Active [facility] 0 [facility] Outpt Diag [id number] Rae 06/30 07/01 [facility] 1 Melchor [facility] Outpatient [id number] AKUVPatricio ELHOR 02/09 Active [facility] 1 [place] Outpatient [id number] RAE 08/21 Active [facility] 2 [facility] Bedded [id number] Sri Harinder 09/21 09/21 [place] Outpatient 6 Jada /2016 [facility] Outpt Diag [id number] Rae 10/02 10/03 [facility] 2 Melchor [facility] Outpatient [id number] RAE 01/21 Active [facility] 3 [place] Outpatient [id number] RAE 02/04 Active [facility] 4 MELCHOR /2017 [facility] Outpatient [id number] RAE 04/23 [facility] 5 M[facility] Outpatient [id number] [facility] 08/20 [facility] 6 [place] Procedures Procedure Code Date Perfomer Comments Source section [id number] [facility] Tonsillectomy [id number] [facility] section [id number] [facility] Tonsillectomy [id number] [facility] section [id number] [facility] Tonsillectomy [id number] [facility]
--- OUTSIDE RECORDS SUMMARY | 2018-11-25 16:07 | XMS REPORT | Continuity of Care Document ---
:1965 Author Organization [facility] Care Team Providers Name Role Phone MD Dawn Saul Unavailable Unavailable Insurance Providers Payer name Policy type / Policy ID Covered democrat ID Policy Vyas Coverage type [facility] Encounters Encounter Performer Location Date Lab Report Fidencio Dawn MD [facility] Oct 22, 2013 Problems Problem Effective Dates Problem Status BENIGN PAROXYSMAL POSITIONAL VERTIGO May 29, 2013 Active HYPERTENSION, BENIGN ESSENTIAL, UNCONTROLLED May 29, 2013 Active HEADACHE Jun 17, 2013 Inactive MIGRAINE HEADACHE Aug 05, 2013 Active LUMBAR SPRAIN AND STRAIN Oct 19, 2013 Active Procedures Date Description Comments May 29, 2013 smoking status never smoker Medications Medication Instructions Start Date Status CHLORTHALIDONE 25 MG TABS One tab PO qday Jun 17, 2013 Active LISINOPRIL 20 MG TABS Two tabs PO qday Jul 16, 2013 Active CARVEDILOL 25 MG TABS One tab PO BID Jul 16, 2013 Active ZOFRAN 4 MG TABS One tab PO q6 hous prn May 29, 2013 Inactive nausea FLUTICASONE PROPIONATE 50 MCG/ACT 2 sprays in each nostril May 29, 2013 Inactive SUSP qam1 ANTIVERT 25 MG TABS One tab PO TID prn vertigo Jun 17, 2013 Inactive ANTIPYRINE-BENZOCAINE 54-14 MG/ML May 29, 2013 Inactive SOLN METHYLPREDNISOLONE (MARCI) 4 MG TABS Take as directed Oct 19, 2013 Active NAPROXEN 500 MG TABS 1 tablet twice daily as Oct 19, 2013 Active needed for pain BACLOFEN 10 MG TABS 1 tablet every 8 hours as Oct 19, 2013 Active needed for muscle spasms or tension Vital Signs Date Description Test Result May 29, 2013 height E&M - 8302-2 HEIGHT 60.5 in May 29, 2013 weight E&M - 3141-9 WEIGHT 163 lb May 29, 2013 temperature E&M TEMPERATURE 96.9 deg f May 29, 2013 blood pressure, systolic - 8480-6 BP SYSTOLIC 195 mm Hg May 29, 2013 blood pressure, diastolic - 8462-4 BP DIASTOLIC 101 mm Hg May 29, 2013 pulse rate E&M - 8867-4 PULSE RATE 53 /min Jun 17, 2013 weight E&M - 3141-9 WEIGHT 162 lb Jun 17, 2013 temperature E&M TEMPERATURE 96.6 deg f Jun 17, 2013 blood pressure, systolic - 8480-6 BP SYSTOLIC 145 mm Hg Jun 17, 2013 blood pressure, diastolic - 8462-4 BP DIASTOLIC 86 mm Hg Jun 17, 2013 pulse rate E&M - 8867-4 PULSE RATE 47 /min Oct 19, 2013 weight E&M - 3141-9 WEIGHT 171 lb Oct 19, 2013 respiratory rate E&M - 9279-1 RESP RATE 18 /min Oct 19, 2013 temperature E&M TEMPERATURE 96.9 deg f Oct 19, 2013 pulse rate E&M - 8867-4 PULSE RATE 46 /min Oct 19, 2013 blood pressure, systolic - 8480-6 BP SYSTOLIC 127 mm Hg Oct 19, 2013 blood pressure, diastolic - 8462-4 BP DIASTOLIC 72 mm Hg
--- OUTSIDE RECORDS SUMMARY | 2018-11-25 16:07 | XMS REPORT | Continuity of Care Document ---
:1965 Author Organization [facility] Care Team Providers Name Role Phone MD Dawn Saul Unavailable Unavailable Insurance Providers Payer name Policy type / Policy ID Covered constitution party ID Policy Vyas Coverage type [facility] Encounters Encounter Performer Location Date Office Visit Fidencio Dawn MD [facility] Oct 19, 2013 Problems Problem Effective Dates Problem Status [...]
--- OUTSIDE RECORDS SUMMARY | 2018-11-25 16:07 | XMS REPORT ---
:1965 Author Organization [employer] Care Team Providers Name Role Phone Jessica Evangelista Provider Role Unavailable Allergies No Known Allergies Problems Problem Type Condition Code Onset Dates Condition Status Problem Hot flashes R23.2 Active Problem Perimenopausal N95.1 Active Medications No Known Medications Results No Known Results Summary Purpose [employer] Submission
[2018-11-25 16:55] LABS: Absolute Lymphocytes (CBC) 2.4 K/uL (0.7-4.9); Absolute Monocytes 0.6 K/uL (0.1-1.3); Absolute Neutrophil 3.3 K/uL (1.8-8.0); Basophils % 0.9 % (0-1.3); Eosinophils % 1.5 % (0-4.4); Hematocrit 41.1 % (36.0-45.0); Lymphocytes % 36.7 % (15.3-44.8); MPV 7.9 fL (7.6-11.3); Monocytes % 9.8 % (3.3-12.3); RBC Red Blood Cell Count 4.81 M/uL (3.86-4.86)
[2018-11-25 17:06] LABS: Protime INR 0.96
[2018-11-25 17:11] LABS: ALT/SGPT 17 U/L (12-78); AST/SGOT 18 U/L (15-37); Albumin 3.8 g/dL (3.4-5.0); Alkaline Phosphatase 94 U/L (45-117); BUN Blood Urea Nitrogen 13 mg/dL (7-18); Bicarbonate 29 mmol/L (21-32); Bilirubin Direct < 0.1 mg/dL (0-0.2); Bilirubin Total 0.4 mg/dL (0.2-1.0); Glucose Level 91 mg/dL (74-106); Magnesium 2.4 mg/dL (1.8-2.4); NT PRO-BNP 52 pg/mL (<125); Potassium 3.6 mmol/L (3.5-5.1); Protein, Total 7.6 g/dL (6.4-8.2); Sodium Level 141 mmol/L (136-145); Troponin (Emerg Dept Use Only) < 0.02 ng/mL (0.0-0.045)
--- NOTE | 2018-11-25 17:31 | RAD REPORT ---
EXAM DESCRIPTION: [place] Single View11/25/2018 5:13 pm CLINICAL HISTORY: Chest pain COMPARISON: July 2017 FINDINGS: The lungs appear clear of acute infiltrate. The heart is normal size IMPRESSION: No acute abnormalities displayed
--- NOTE | 2018-11-25 17:41 | RAD REPORT ---
EXAM DESCRIPTION: USExtrem Venous W Compress Bil11/25/2018 5:08 pm CLINICAL HISTORY: Bilateral leg swelling COMPARISON: none FINDINGS: The common femoral, superficial femoral, popliteal and posterior tibial veins bilaterally are compressible and demonstrate augmentation. Doppler demonstrates good flow. IMPRESSION: No evidence of deep venous thrombosis involving either lower extremity.
[2018-11-25] MEDS ORDERED: PROMETHAZINE 25 MG/ML VIAL ONE (17:44)
[2018-11-25] MEDS ORDERED: ASPIRIN 81 MG CHEWABLE TABLET ONE (17:53)
--- NOTE | 2018-11-25 18:43 | ER ---
Nurse's Notes [facility] Name: Renea Mcmahan Age: 53 yrs Sex: Female : 1965 Arrival Date: 11/25/2018 Time: 16:05 Bed 27 Private MD: Out, [facility] Diagnosis: Chest pain, unspecified Presentation: 11/25 16:10 Presenting complaint: Patient states: this pain in my chest started 3 days ago and the tw2 numbness in my right arm happened the same day, and then after i worked out today it got worse plus the nausea, and Saturday my energy level has been zapped, just walking from my car to the house i am out of breath. Transition of care: patient was not received from another setting of care. Onset of symptoms was November 25, 2018. Risk Assessment: Do you want to hurt yourself or someone else? Patient reports no desire to harm self or others. Initial Sepsis Screen: Does the patient meet any 2 criteria? No. Patient's initial sepsis screen is negative. Does the patient have a suspected source of infection? No. Patient's initial sepsis screen is negative. Care prior to arrival: None. 16:10 Method Of Arrival: Ambulatory tw2 16:10 Acuity: JANNETH 2 tw2 Triage Assessment: 16:12 General: Appears in no apparent distress. obese, well groomed, Behavior is calm, tw2 cooperative, appropriate for age. Pain: Complains of pain in chest Pain radiates to Right shoulder. Cardiovascular: Reports chest pain, shortness of breath, Patient's skin is warm and dry. MOBILE HOME SET UP PERSON: 16:10 LMP N/A - Post-menopause tw2 Historical: - Allergies: 16:14 No Known Allergies; tw2 - Home Meds: 16:14 Norvasc 5 mg Oral tab 1 tab once daily [Active]; isosorbide-hydralazine oral oral tw2 [Active]; - PMHx: 16:14 Hypertension; tw2 - PSHx: 16:14 Tonsillectomy; colonoscopy; ; tw2 - Immunization history:: Adult Immunizations. - Social history:: Smoking status: Patient/guardian denies using tobacco. - Ebola Screening: : Patient denies travel to an Ebola-affected area in the 21 days before illness onset. Screenin:43 Abuse screen: Denies threats or abuse. Denies injuries from another. Nutritional rv screening: No deficits noted. Tuberculosis screening: No symptoms or risk factors identified. Fall Risk None identified. Assessment: 16:42 General: Appears in no apparent distress. comfortable, Behavior is calm, cooperative. rv Pain: Complains of pain in chest Pain began 2-3 days ago. Pain: Pain does not radiate. Neuro: Level of Consciousness is awake, alert, obeys commands, Oriented to person, place, time, situation. Cardiovascular: Capillary refill < 3 seconds. Respiratory: Airway is patent. GI: Reports nausea. : No signs and/or symptoms were reported regarding the genitourinary system. EENT: No signs and/or symptoms were reported regarding the EENT system. Derm: Skin is intact, is healthy with good turgor. Musculoskeletal: No signs and/or symptoms reported regarding the musculoskeletal system. 17:30 Reassessment: Patient appears in no apparent distress at this time. No changes from rv previously documented assessment. Patient and/or family updated on plan of care and expected duration. Pain level reassessed. patient still complains of nausea but no vomiting. vital signs checked. referred to Hanane Fair. 18:51 Reassessment: Patient appears in no apparent distress at this time. Patient and/or rv family updated on plan of care and expected duration. Pain level reassessed. Patient is alert, oriented x 3, equal unlabored respirations, skin warm/dry/pink. complaining of chest pain. vital signs checked. nausea got better after the Phenergan. patient given pain medicine as ordered. family present inside the room. for reevaluation of pain before discharge. 19:22 Reassessment: Patient appears in no apparent distress at this time. No changes from rv previously documented assessment. Patient and/or family updated on plan of care and expected duration. Pain level reassessed. 19:39 Reassessment: Patient appears in no apparent distress at this time. No changes from rv previously documented assessment. Patient and/or family updated on plan of care and expected duration. Pain level reassessed. still complaining of the same pain. updated Dr Freed. Vital Signs: 16:10 BP 150 / 105; Pulse 60; Resp 18; Temp 98(O); Pulse Ox 100% on R/A; Weight 81.65 kg (R); tw2 Height 4 ft. 11 in. (149.86 cm); Pain 6/10; 17:00 BP 132 / 76; Pulse 57; Resp 17; Pulse Ox 97% on R/A; rv 17:30 BP 138 / 87; Pulse 60; Resp 16; Pulse Ox 97% ; rv 18:53 BP 145 / 96; Pulse 54; Resp 15; Pulse Ox 98% on R/A; rv 19:21 BP 137 / 92; Pulse 51; Resp 15; Pulse Ox 100% ; rv 19:40 BP 144 / 90; Pulse 55; Resp 17; Pulse Ox 96% ; rv 21:48 BP 130 / 86 RA Supine; Pulse 51; Resp 15 S; Pulse Ox 100% on R/A; rv 16:10 Body Mass Index 36.36 (81.65 kg, 149.86 cm) tw2 ED Course: 16:05 Patient arrived in ED. mr 16:05 Out, [facility] is Private Physician. mr 16:12 Triage completed. tw2 16:12 Arm band placed on. EKG completed in triage. Results shown to MD. tw2 16:16 Manjula Olivera [facility]-C [facility]. snw 16:16 Hosea Bridges MD is Attending Physician. snw 16:25 Missed attempt(s): 20 gauge in right antecubital area. rv 16:26 EKG done, by endo tech. reviewed by Hosea Bridges MD. sm3 16:36 Inserted saline lock: 22 gauge in left antecubital area, using aseptic technique. Blood rv collected. 16:41 Zana Dodge, RN is Primary Nurse. rv 16:44 Patient has correct armband on for positive identification. Placed in gown. Bed in low rv position. Call light in reach. Side rails up X 1. residential monitor on. Pulse ox on. NIBP on. 16:44 Patient maintains SpO2 saturation greater than 95% on room air. rv 16:45 Basic Metabolic Panel Sent. rv 17:08 US Extremity Venous W Compression Theodore In Process Unspecified. EDMS 17:14 XRAY Chest (1 view) In Process Unspecified. EDMS 18:14 Troponin (emerg Dept Use Only) Sent. rv 18:41 Attending Physician role handed off by Hosea Bridges MD snw 18:41 Augusto Freed MD is Attending Physician. snw 20:[address] vm2 20:30 CT Aorta for Dissection In Process Unspecified. EDMS 20:42 Paco Garcia MD is Hospitalizing Provider. gs 21:48 No provider procedures requiring assistance completed. Patient admitted, IV remains in rv place. Administered Medications: 17:40 Drug: Phenergan 12.5 mg Route: IVP; Site: left antecubital; rv 18:14 Follow up: Response: Nausea is decreased rv 17:45 Drug: Aspirin Chewable Tablet 324 mg Route: PO; rv 18:14 Follow up: Response: No adverse reaction rv 18:50 Drug: fentaNYL (PF) 50 mcg Route: IVP; Site: left antecubital; rv 19:21 Follow up: Response: Pain is unchanged, physician notified rv Outcome: 18:42 Discharge ordered by . snw 20:43 Decision to Hospitalize by Provider. gs 21:49 Admitted to Tele accompanied by tech, via wheelchair, room 421, with chart, Report rv called to LUCIO MORA 21:49 Condition: stable 21:49 Instructed on the need for admit, Demonstrated understanding of instructions. 22:07 Patient left the ED. rv Signatures: Dispatcher [employer] EDMS Manjula Olivera, XEROX MACHINE ASSEMBLER-C XEROX MACHINE ASSEMBLER-Csnw Louann Banks mr Devi Verduzco, RN RN 2 Lorelei Oliveira 2 Augusto Freed MD MD Argelia Reece 3 Zana Dodge RN RN rv
--- NOTE | 2018-11-25 18:43 | EDPHYS ---
Physician Documentation [facility] Name: Renea Mcmahan Age: 53 yrs Sex: Female : 1965 Arrival Date: 11/25/2018 Time: 16:05 Bed 27 Private MD: Out, [facility] ED Physician Augusto Freed HPI: 11/25 16:32 This 53 yrs old Black Female presents to ER via Ambulatory with complaints of Chest snw Pain, Nausea, General Weakness, Numbness Of Arm. 16:32 The patient or guardian reports chest pain that is located primarily in the anterior snw chest wall, bilaterally. Onset: gradually, 3 day(s) ago, and became persistent. The pain does not radiate. Associated signs and symptoms: Pertinent positives: dizziness, lightheadedness. The chest pain is described as a heaviness, constant, worse post working out this am. Feels winded with any activity. Duration: The patient or guardian reports a single episode, that is still ongoing. Severity of pain: At its worst the pain was moderate. 2 years ago. The patient has not recently seen a physician. 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 - Social history:: Smoking status: Patient/guardian denies using tobacco. - Ebola Screening: : Patient denies travel to an Ebola-affected area in the 21 days before illness onset. ROS: 16:30 Eyes: Negative for injury, pain, redness, and discharge, ENT: Negative for injury, snw pain, and discharge, Neck: Negative for injury, pain, and swelling. 16:30 Abdomen/GI: Negative for abdominal pain, nausea, vomiting, diarrhea, and constipation, Back: Negative for injury and pain, : Negative for injury, bleeding, discharge, and swelling, MS/Extremity: Negative for injury and deformity, Skin: Negative for injury, rash, and discoloration. 16:30 Constitutional: Positive for fatigue, malaise. 16:30 Cardiovascular: Positive for chest pain, constant. 16:30 Respiratory: Positive for dyspnea on exertion, orthopnea, shortness of breath. 16:30 Neuro: Positive for dizziness. Exam: 16:30 Constitutional: This is a well developed, well nourished patient who is awake, alert, snw and in no acute distress. Head/Face: Normocephalic, atraumatic. Eyes: Pupils equal round and reactive to light, extra-ocular motions intact. Lids and lashes normal. Conjunctiva and sclera are non-icteric and not injected. Cornea within normal limits. Periorbital areas with no swelling, redness, or edema. ENT: Nares patent. No nasal discharge, no septal abnormalities noted. Tympanic membranes are normal and external auditory canals are clear. Oropharynx with no redness, swelling, or masses, exudates, or evidence of obstruction, uvula midline. Mucous membranes moist. Neck: Trachea midline, no thyromegaly or masses palpated, and no cervical lymphadenopathy. Supple, full range of motion without nuchal rigidity, or vertebral point tenderness. No Meningismus. Chest/axilla: Normal chest wall appearance and motion. Nontender with no deformity. No lesions are appreciated. 16:30 Respiratory: Lungs have equal breath sounds bilaterally, clear to auscultation and percussion. No rales, rhonchi or wheezes noted. No increased work of breathing, no retractions or nasal flaring. Abdomen/GI: Soft, non-tender, with normal bowel sounds. No distension or tympany. No guarding or rebound. No evidence of tenderness throughout. Back: No spinal tenderness. No costovertebral tenderness. Full range of motion. Skin: Warm, dry with normal turgor. Normal color with no rashes, no lesions, and no evidence of cellulitis. MS/ Extremity: Pulses equal, no cyanosis. Neurovascular intact. Full, normal range of motion. Neuro: Awake and alert, GCS 15, oriented to person, place, time, and situation. Cranial nerves II-XII grossly intact. Motor strength 5/5 in all extremities. Sensory grossly intact. Cerebellar exam normal. Normal gait. Psych: Awake, alert, with orientation to person, place and time. Behavior, mood, and affect are within normal limits. 16:30 Cardiovascular: Rate: normal, Rhythm: regular, Edema: 1+ edema to level of left foot, left toes, right foot and right toes. 16:35 ECG was reviewed by the Attending Physician. snw Vital Signs: 16:10 BP 150 / 105; Pulse 60; Resp 18; Temp 98(O); Pulse Ox 100% on R/A; Weight 81.65 kg (R); tw2 Height 4 ft. 11 in. (149.86 cm); Pain 6/10; 17:00 BP 132 / 76; Pulse 57; Resp 17; Pulse Ox 97% on R/A; rv 17:30 BP 138 / 87; Pulse 60; Resp 16; Pulse Ox 97% ; rv 18:53 BP 145 / 96; Pulse 54; Resp 15; Pulse Ox 98% on R/A; rv 19:21 BP 137 / 92; Pulse 51; Resp 15; Pulse Ox 100% ; rv 19:40 BP 144 / 90; Pulse 55; Resp 17; Pulse Ox 96% ; rv 21:48 BP 130 / 86 RA Supine; Pulse 51; Resp 15 S; Pulse Ox 100% on R/A; rv 16:10 Body Mass Index 36.36 (81.65 kg, 149.86 cm) tw2 MDM: 16:56 Patient medically screened. snw 17:31 ECG:. The patient was given aspirin in the Emergency Department. snw 17:32 RADHA Risk Score: 1- Known CAD, 1 - Recent [<24hrs] Severe Angina, TOTAL SCORE = 2. Data snw reviewed: vital signs, nurses notes, lab test result(s), EKG, discussed 3 hour rule out, pt voices understanding of tx plan. 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 Interpretation: normal. Counseling: I had a detailed discussion with the patient and/or guardian regarding: the historical points, exam findings, and any diagnostic results supporting the discharge/admit diagnosis, the presence of at least one elevated blood pressure reading (>120/80) during this emergency department visit, lab results, radiology results. 18:38 ECG:. Response to treatment: the patient's symptoms have mildly improved after snw treatment. Transition of care: After a detail discussion of the patient's case, care is transferred to Augusto Freed MD. 20:41 Differential diagnosis: acute myocardial infarction, coronary artery disease chest wall gs pain, pulmonary embolus, thoracic aortic disection. ED course: still having pain wants admit dr mary gates with wants ct which is neg for dissection pe. 11/25 16:17 Order name: Basic Metabolic Panel snw 11/25 16:17 Order name: CBC with Diff; Complete Time: 16:58 snw 11/25 16:17 Order name: LFT's; Complete Time: 17:15 snw 11/25 16:17 Order name: Magnesium; Complete Time: 17:15 snw 11/25 16:17 Order name: NT PRO-BNP; Complete Time: 17:15 snw 11/25 16:17 Order name: PT-INR; Complete Time: 17:15 snw 11/25 16:17 Order name: Troponin (emerg Dept Use Only); Complete Time: 17:15 snw 11/25 16:18 Order name: Basic Metabolic Panel; Complete Time: 17:15 EDMS 11/25 16:30 Order name: TSH; Complete Time: 17:27 snw 11/25 17:51 Order name: Troponin (emerg Dept Use Only); Complete Time: 18:41 snw 11/25 20:51 Order name: Basic Metabolic Panel EDMS 11/25 20:51 Order name: Basic Metabolic Panel EDMS 11/25 20:51 Order name: CBC with Automated Diff EDMS 11/25 20:51 Order name: CBC with Automated Diff EDMS 11/25 16:17 Order name: XRAY Chest (1 view); Complete Time: 17:34 snw 11/25 16:17 Order name: EKG; Complete Time: 16:18 snw 11/25 16:30 Order name: US Extremity Venous W Compression Theodore; Complete Time: 17:42 snw 11/25 17:51 Order name: EKG; Complete Time: 17:52 snw 11/25 20:01 Order name: CT Aorta for Dissection; Complete Time: 20:43 gs 11/25 20:51 Order name: CONS Physician Consult EDMS 11/25 20:51 Order name: Consistent Carb (ADA) 2000 Donovan EDMS 11/25 20:51 Order name: EKG Electrocardiogram EDMS 11/25 20:51 Order name: EKG Electrocardiogram EDMS 11/25 20:51 Order name: EKG Electrocardiogram EDMS 11/25 20:51 Order name: Troponin I EDMS 11/25 20:51 Order name: Troponin I EDMS 11/25 20:51 Order name: Troponin I EDMD 11/25 16:17 Order name: Cardiac monitoring; Complete Time: 16:45 snw 11/25 16:17 Order name: EKG - Nurse/Tech; Complete Time: 16:45 snw 11/25 16:17 Order name: IV Saline Lock; Complete Time: 16:45 snw 11/25 16:17 Order name: Labs collected and sent; Complete Time: 16:45 snw 11/25 16:17 Order name: O2 Per Protocol; Complete Time: 16:45 snw 11/25 16:17 Order name: O2 Sat Monitoring; Complete Time: 16:45 snw 11/25 17:35 Order name: Repeat Cardiac Enzymes at: 1900; Complete Time: 17:51 snw 11/25 20:51 Order name: EKG Electrocardiogram EDMS EC:35 Rate is 69 beats/min. Rhythm is regular. NC interval is normal. QRS interval is normal. snw QT interval is normal. No Q waves. Clinical impression: NSR w/ Non-specific ST/T Changes. 18:38 Clinical impression: NSR w/ Non-specific ST/T Changes. snw Administered Medications: 17:40 Drug: Phenergan 12.5 mg Route: IVP; Site: left antecubital; rv 18:14 Follow up: Response: Nausea is decreased rv 17:45 Drug: Aspirin Chewable Tablet 324 mg Route: PO; rv 18:14 Follow up: Response: No adverse reaction rv 18:50 Drug: fentaNYL (PF) 50 mcg Route: IVP; Site: left antecubital; rv 19:21 Follow up: Response: Pain is unchanged, physician notified rv Disposition: 20:41 Critical Care:. Co-signature as Attending Physician, Augusto Freed MD. Disposition: 11/25/18 20:43 Hospitalization ordered by Paco Garcia for Observation. Preliminary diagnosis is Chest pain, unspecified. - Bed requested for Telemetry/MedSurg (observation). - Status is Observation. rv - Condition is Stable. - Problem is new. - Symptoms have improved. UTI on Admission? No Critical care time excluding procedures: 20:41 Critical care time: Bedside Care: 10 minutes, Consultation: 10 minutes, Family gs Intervention: 10 minutes. Total time: 30 minutes Signatures: Dispatcher [employer] EDMS Janel Paula RN RN Manjula Olivera, ASTON-Martin TRANSCRIPTION TYPIST-Devi Ramos RN RN tw2 Augusto Freed MD MD Zana Dodge RN RN rv Corrections: (The following items were deleted from the chart) 17:51 17:35 Misc. Order ordered. [facility] 20:02 18:42 11/25/2018 18:42 Discharged to Home. Impression: Chest pain, unspecified; Nausea. gs Condition is Stable. Discharge Instructions: Nonspecific Chest Pain, Nausea, Adult, Aspirin and Your Heart. Prescriptions for promethazine 25 mg Oral Tablet - take 1 tablet by ORAL route every 6 hours As needed; 20 tablet. and Forms are Work release form, Medication Reconciliation Form, Thank You Letter, Antibiotic Education, Prescription Opioid Use. Follow up: Private Physician; When: 1 - 2 days; Reason: Recheck today's complaints, Continuance of care, Re-evaluation by your physician. Follow up: Emergency Department; When: As needed; Reason: Worsening of condition. [facility] 21:08 20:43 Hospitalization Ordered by aPco Garcia MD for Observation. Preliminary diagnosis mw is Chest pain, unspecified. Bed requested for Telemetry/MedSurg (observation). Status is Observation. Condition is Stable. Problem is new. Symptoms have improved. UTI on Admission? No. gs 21:09 21:08 11/25/2018 20:43 Hospitalization Ordered by Paco Garcia MD for Observation. mw Preliminary diagnosis is Chest pain, unspecified. Bed requested for Telemetry/MedSurg (observation). Status is Observation. Condition is Stable. Problem is new. Symptoms have improved. UTI on Admission? No. mw 22:07 21:09 11/25/2018 20:43 Hospitalization Ordered by Paco Garcia MD for Observation. rv Preliminary diagnosis is Chest pain, unspecified. Bed requested for Telemetry/MedSurg (observation). Status is Observation. Condition is Stable. Problem is new. Symptoms have improved. UTI on Admission? No. mw
[2018-11-25] MEDS ORDERED: FENTANYL CITR 100 MCG/2 ML ONE (19:00)
--- NOTE | 2018-11-25 20:42 | RAD REPORT ---
EXAM DESCRIPTION: CT - Angio Aorta For Dissection - 11/25/2018 8:30 pm CLINICAL HISTORY: Persistent chest pain, hypertension COMPARISON: None. TECHNIQUE: Dynamically enhanced 3 mm thick images of the chest, abdomen, and upper pelvis were obtai sagar during administration of approximately 150mL Isovue 370 IV contrast. Sagittal and coronal reconst ruction images were generated using MIP and reviewed. Exam utilizes a protocol to evaluate entire cou rse of the aorta. All CT scans are performed using dose optimization technique as appropriate and may include automated exposure control or mA/KV adjustment according to patient size. FINDINGS: Aortic arch is bovine configuration. No great vessel origin abnormality. Bilateral subclav junie arteries are unremarkable. Proximal most aspect of each common carotid artery unremarkable with t he vertebral artery is not adequately visualized for assessment. Aorta is normal in diameter along it s entire length with no dissection or acute aortic finding. Pulmonary arteries are normal as well. No cardiomegaly, pericardial thickening or pericardial effusio n. No mass or infiltrate in the lung parenchyma. No pleural thickening, pleural effusion or pneumothorax . No abnormal mediastinal or hilar mass or lymphadenopathy seen. No chest wall mass or abnormal axillar y lymphadenopathy. Celiac, SMA and renal arteries show no suspicious findings. Solid abdominal viscera and bowel show no significant findings. No mass or abnormal lymphadenopathy. No free air, free fluid or inflammatory stranding. Uterus and ovaries show no suspicious findings. Urinary bladder is dilated with the dome of the bladder reaching almost to the umbilical level. No wall thickening or mass. No abnormality issac ng the pelvic floor. IMPRESSION: Negative CT scan of the aorta. No pulmonary artery abnormality. No acute CT chest finding. Urinary bladder is dilated without wall thickening, mass or other suspicious finding. Dome of the marty dder reaches superiorly to almost the umbilical level. No other significant or emergent CT abdomen or pelvis finding.
[2018-11-25] MEDS: MORPHINE 4 MG/ML SYR IV PRN (21:34)
[2018-11-25] MEDS: ONDANSETRON 4 MG/2 ML VIAL IV PRN (21:35)
--- NOTE | 2018-11-25 21:38 | EKG ---
Test Date: 2018-11-25 Test Time: 16:13:27 Refractory Products Supervisor: CHAMP MEASUREMENT RESULTS: Intervals: Rate: 69 [place]: 154 QRSD: 76 QT: 376 QTc: 402 [place]: P: 45 [place]: 154 QRS: 54 T: 34 INTERPRETIVE STATEMENTS: Normal sinus rhythm Cannot rule out Anterior infarct, age undetermined Abnormal ECG Compared to ECG 08/22/2009 09:15:12 Myocardial infarct finding now present Sinus bradycardia no longer present Electronically Signed On 11-25-18 21:38:09 CDT by Ángel Mullen
[2018-11-25] MEDS ORDERED: MORPHINE 4 MG/ML SYR ONE (21:44)
[2018-11-25] MEDS ORDERED: ONDANSETRON 4 MG/2 ML VIAL ONE (21:44)
[2018-11-25 23:09] VITALS: BMI 36.3
[2018-11-26] MEDS: MORPHINE 4 MG/ML SYR IV PRN ×2 (02:30→13:23)
[2018-11-26 03:29] LABS: Absolute Monocytes 0.8 K/uL (0.1-1.3); Absolute Neutrophil 2.3 K/uL (1.8-8.0); Basophils % 0.9 % (0-1.3); Hematocrit 39.5 % (36.0-45.0); Lymphocytes % 47.6 % (15.3-44.8); RBC Red Blood Cell Count 4.65 M/uL (3.86-4.86)
[2018-11-26 03:42] LABS: Potassium 3.5 mmol/L (3.5-5.1)
[2018-11-26] MEDS: ONDANSETRON 4 MG/2 ML VIAL IV PRN (03:45)
[2018-11-26] MEDS: ASPIRIN EC 81 MG TAB PO SCH (08:49)
[2018-11-26] MEDS: ACETAMINOPHEN 500 MG TAB PO PRN ×2 (09:19→18:21)
[2018-11-26] MEDS: DEXAMETHASONE 10 MG/ML VIAL IV SCH ×2 (11:46→17:45)
--- NOTE | 2018-11-26 16:50 | EKG ---
Test Date: 2018-11-26 Test Time: 07:55:42 Clip Loading Machine Adjuster: LUIS MEASUREMENT RESULTS: Intervals: Rate: 47 GA: 182 QRSD: 84 QT: 442 QTc: 391 [place]: P: 52 GA: 182 QRS: 64 T: 33 INTERPRETIVE STATEMENTS: Marked sinus bradycardia Abnormal ECG Compared to ECG 11/25/2018 16:13:27 Sinus rhythm no longer present Myocardial infarct finding no longer present Electronically Signed On 11-26-18 16:49:12 CDT by Joe Gutierrez
--- NOTE | 2018-11-26 16:53 | EKG ---
Test Date: 2018-11-25 Test Time: 18:06:05 Transit Coach Operator: RV MEASUREMENT RESULTS: Intervals: Rate: 53 AL: 160 QRSD: 76 QT: 430 QTc: 403 [place]: P: 39 AL: 160 QRS: 58 T: 25 INTERPRETIVE STATEMENTS: Sinus bradycardia Cannot rule out Anterior infarct, age undetermined Abnormal ECG Compared to ECG 11/25/2018 16:13:27 Sinus rhythm no longer present Myocardial infarct finding still present Electronically Signed On 11-26-18 16:53:11 CDT by Joe Gutierrez
--- NOTE | 2018-11-26 17:29 | P.HP ---
Certification for Inpatient Patient admitted to: Observation With expected LOS: <2 Midnights Practitioner: I am a practitioner with admitting privileges, knowledge of patient current condition, hospital course, and medical plan of care. Services: Services provided to patient in accordance with Admission requirements found in Title 42 Section 412.3 of the Code of Federal Regulations Patient History Date of Service: 11/26/18 Reason for admission: CHEST PAIN History of Present Illness: MS. PRICE HAS R SIDE CHEST PAIN, R SHOULDER PAIN AND PAIN IS MORE ON BREATHING. SHE HAS NO DYSPNEA. ER DOCTOR CALLED ME AND I ASKED FOR CT SCAN DISSECTION PROTOCOL THAT WAS NORMAL. SHE IS BETTER WITH IV STEROIDS I GAVE IN THE AM BUT STILL AT 4/10 AND PAIN SHE SAYS HAS SHIFTED TO L SIDE OF CHEST WALL. SHE WILL SEE AIR TESTER. Allergies No Known Allergies Allergy (Verified 11/25/18 23:11) Home Medications: Amlodipine [Norvasc*] 5 mg PO DAILY 11/25/18 Isosorb Dinit/Hydralazine HCl [Bidil Tablet] 15 mg PO DAILY 11/25/18 - Past Medical/Surgical History Diabetic: No -: HTN -: c-sect -: tonsillectomy -: skin sample removed on scalp - Social History Smoking Status: Never smoker Alcohol use: Yes CD- Drugs: No Caffeine use: Yes Place of Residence: Home Review of Systems 10-point ROS is otherwise unremarkable Cardiovascular: Chest Pain Physical Examination - Vital Signs Temperature: 96.9 F Blood Pressure: 121/66 Pulse: 57 Respirations: 20 Pulse Ox (%): 99 - Physical Exam General: Alert, Moderate distress, Obese HEENT: Atraumatic, PERRLA, Mucous membr. moist/pink, EOMI, Sclerae nonicteric Neck: Supple, 2+ carotid pulse no bruit, No LAD, Without JVD or thyroid abnormality Respiratory: Clear to auscultation bilaterally, Normal air movement Cardiovascular: Regular rate/rhythm, Normal S1 S2 Gastrointestinal: Normal bowel sounds, No tenderness Musculoskeletal: No tenderness Integumentary: No rashes Neurological: Normal gait, Normal speech, Normal strength at 5/5 x4 extr, Normal tone, Normal affect Lymphatics: No axilla or inguinal lymphadenopathy Assessment and Plan - Problems (Diagnosis) (1) Atypical chest pain Current Visit: Yes Status: Acute Plan: RISK OF CAD IS LOW. PAIN CHARACTER SEEMS NON CARDIAC. DR. HOFFMANN HAS ORDERED ST TEST FOR AM. I AM GIVING HER IV STEROIDS FOR SEVERE COSTCOCHDRITIS. I SEE NO SIGNS OF ANY RHEUM DISORDERS. PROGNOSIS IS GOOD. - Advance Directives Does patient have a Living Will: No Does patient have a Durable POA for Healthcare: No
[2018-11-26] MEDS ORDERED: LORazepam 2 MG/ML VIAL IV ONE (17:36)
--- NOTE | 2018-11-26 18:20 | RAD REPORT ---
EXAM DESCRIPTION: MRI - C Spine Wo Cont - 11/26/2018 6:06 pm CLINICAL HISTORY: Right arm numbness COMPARISON: None TECHNIQUE: Magnetic resonance imaging of the cervical spine was obtained with coronal and sagittal r econstruction FINDINGS: Minimal spondylosis involves the cervical spine mainly consisting of small osteophytes and minimal disc bulges. Central spinal stenosis is not noted. The neural foramina are patent. Disc herniation is not seen. The spinal cord is normal caliber and signal. No abnormal signal within the bones is noted. 12 millimeter area increased signal within the T3 vertebral body on T1 weighted sequences likely repr esents a hemangioma IMPRESSION: Minimal spondylosis of the cervical spine
[2018-11-26] MEDS ORDERED: TRAZODONE 50 MG TABLET PO PRN (22:39)
[2018-11-26] MEDS ORDERED: DIPHENHYDRAMINE 25 MG TAB/CAP PO PRN (22:40)
[2018-11-27] MEDS: ACETAMINOPHEN 500 MG TAB PO PRN ×2 (00:16→11:11)
[2018-11-27] MEDS: DEXAMETHASONE 10 MG/ML VIAL IV SCH ×3 (00:17→11:10)
[2018-11-27] MEDS ORDERED: AMLODIPINE 5 MG TAB PO SCH (09:00)
[2018-11-27] MEDS ORDERED: REGADENOSON 0.4 MG/5 ML SYR IV ONE (09:01)
--- NOTE | 2018-11-27 10:10 | RAD REPORT ---
EXAM DESCRIPTION: NM - Rest Stress Cardiac Imaging - 11/27/2018 9:54 am CLINICAL HISTORY: CP Chest pain. COMPARISON: No comparisons TECHNIQUE: The patient was administered approximately 10mCi of Tc 99m Sestamibi prior to resting SPE CT imaging of the heart. The patient was then administered approximately 30 mCi of Tc 99m Sestamibi f ollowing exercise or pharmacologic stress. Multiplanar SPECT images were reviewed. FINDINGS: No stress induced ischemic defect is seen to suggest stress induced ischemia. No fixed def ect is seen to suggest hibernating myocardium or scarred myocardium. The end diastolic volume is 74 ml, the end systolic volume is 19 ml, and the ejection fraction is 75 %. IMPRESSION: No stress induced ischemia.
[2018-11-27 10:19] VITALS: O2SAT 96
[2018-11-27] MEDS: ASPIRIN EC 81 MG TAB PO SCH (11:10)
[2018-11-27 13:49] VITALS: BP 135/77; TEMP 97.9
--- NOTE | 2018-11-27 15:46 | CON ---
Date of Consultation: 11/27/2018 Subjective: Admitted to Dr. Garcia's service on 11/25/2018 . I saw the patient on 11/28/19 19. Main complaint is chest pain, has a history of hypertension; came in with left arm numbness, wea kness, nausea, chest pain that was midsternal, pressured sensation, lasted for about a day or two, wo rse on lying down and turning on her left side of the body. Denies PND, orthopnea. Patient __ fever or chills. hard physical work in the yard, cutting tree and branches. _ history of hypertension. Review of Systems: Negative. Social History: Negative. Family History: Negative. Medications: Medications at home include Norvasc, isosorbide and hydralazine combination. Physical Examination: General: She was pleasant, no acute distress. Vital Signs: Stable. Afebrile. HEENT: Negative. Neck: Supple with no bruit. Chest: Clear. Cardiac Exam: Regular rhythm and rate with S4 gallops. No murmurs or rubs. Abdomen: Benign. Extremities: Revealed no clubbing, cyanosis, or edema. Diagnostic Data: Her EKG shows sinus bradycardia. Chest x-ray was normal. CT angiogram was normal. MRI of the spine shows cervical spondylosis that is mild. Impression And Plan: 1.Atypical chest pain with nausea, weakness, left arm numbness; I think this is mostly musculoskelet al. The Lexiscan is pending. 2.Hypertension, well controlled. 3.Cervical spondylosis, certainly could account for her left arm numbness. We will see what her str ess test showed before making final decision, and if it is normal, she can go home and we will see he r as an outpatient as needed. ANTHONY/TAYLOR Voice ID: [id number] Report ID: [id number]
--- NOTE | 2018-11-27 16:48 | TREADPHA ---
DX: CHEST PAIN Date of Study: 11/27/18 Ht: 4 11 Wt: 180 lb 0 oz Consulting Physician: TAHIRA MEDICATIONS: AMLODIPINE, METHYL, PREDNISOLONE. HISTORY: 53 YEAR FEMALE WITH COMPLAINTS OF CHEST PAIN. HISTORY: HYPERTENSION, NON-SMOKER, OCCASIONAL DRINKER. PHYSICIAL EXAMINATION: RESTING B.P.: 152/109 RESTING H.R.: 64 RESTING EKG: NORMAL PROTOCOL: LEXISCAN EXERCISE TIME: 3:30 B.P. AT PEAK STRESS: 142/84 IMPRESSION: LEXISCAN INJECTED, FOLLOWED BY CARDIOLITE PER PROTOCOL, SEE NUCLEAR MEDICINE REPORT. NO SUPRAVENTRICULAR TACHYCARDIA, VENTRICULAR TACHYCARDIA, PREMATURE ATRIAL COMPLEXS, OR PREMATURE VENTRICULAR COMPLEXS. PATIENT REPORTED NO CHEST PAIN. NON-DIAGNOSTIC ELECTROCARDIOGRAM WITH LEXISCAN STRESS.
--- NOTE | 2018-11-27 18:19 | P.DS ---
Admission Date: 11/25/18 Discharge Date: 11/27/18 Disposition: ROUTINE DISCHARGE Discharge Condition: FAIR Reason for Admission: CHEST PAIN - Problems (1) Atypical chest pain Status: Acute Brief History of Present Illness: MS. PRICE HAS R SIDE CHEST PAIN, R SHOULDER PAIN AND PAIN IS MORE ON BREATHING. SHE HAS NO DYSPNEA. ER DOCTOR CALLED ME AND I ASKED FOR CT SCAN DISSECTION PROTOCOL THAT WAS NORMAL. SHE IS BETTER WITH IV STEROIDS I GAVE IN THE AM BUT STILL AT 4/10 AND PAIN SHE SAYS HAS SHIFTED TO L SIDE OF CHEST WALL. SHE WILL SEE SUPERVISOR GROWER. STABLE, PAINFREE. DC HOME. ST TEST NEGATIVE. Vital Signs/Physical Exam: Temp Pulse Resp BP Pulse Ox 97.9 F 80 18 135/77 98 11/27/18 12:00 11/27/18 12:00 11/27/18 12:00 11/27/18 12:00 11/27/18 12:00 Laboratory Data at Discharge: WBC 6.3 K/uL (4.3-10.9) 11/26/18 03:14 Hgb 13.2 g/dL (12.0-15.0) 11/26/18 03:14 Hct 39.5 % (36.0-45.0) 11/26/18 03:14 Plt Count 293 K/uL (152-406) 11/26/18 03:14 PT 11.4 SECONDS (9.5-12.5) 11/25/18 16:36 INR 0.96 11/25/18 16:36 Sodium 143 mmol/L (136-145) 11/26/18 03:14 Potassium 3.5 mmol/L (3.5-5.1) 11/26/18 03:14 BUN 12 mg/dL (7-18) 11/26/18 03:14 Creatinine 1.17 mg/dL (0.55-1.3) 11/26/18 03:14 Glucose 94 mg/dL (74-106) 11/26/18 03:14 Magnesium 2.4 mg/dL (1.8-2.4) 11/25/18 16:36 Total Bilirubin 0.4 mg/dL (0.2-1.0) 11/25/18 16:36 AST 18 U/L (15-37) 11/25/18 16:36 ALT 17 U/L (12-78) 11/25/18 16:36 Alkaline Phosphatase 94 U/L (45-117) 11/25/18 16:36 Troponin I < 0.02 ng/mL (0.0-0.045) 11/26/18 03:14 Home Medications: Amlodipine [Norvasc*] 5 mg PO DAILY 11/25/18 Methylprednisolone [Medrol dosepack] 4 mg PO DIRECTED #1 kelly 11/27/18 New Medications: Methylprednisolone [Medrol dosepack] 4 mg PO DIRECTED #1 kelly Patient Discharge Instructions: CONTINUE SAME BP MEDS YOU HAVE AT HOME AMLODIPINE, IRBESARTAN. STOP HYDRALAZINE. COME TO OFFICE IN ONE WEEK.
== END 2018-11-27 14:00 | disposition home or self-care (01) ==
LOC: ER 16:02 → ERHOLD 20:48 → 4TH 22:02
PROVIDERS: ADMIT Internal Medicine; ATTEND Internal Medicine
DX: R07.89 Other chest pain (principal); I10 Essential (primary) hypertension; M47.892 Other spondylosis, cervical region
CPT/HCPCS: 36415; 71045; 71275; 72141; 74175; 78452; 80048; 80076; 83735; 83880; 84443; 84484; 85025; 85610; 93005; 93017; 93970; 96374; 96375; 99285; A9500; G0378; J1100; J2405; J2550; J2785; J3010; Q9967

== ENCOUNTER 2019-12-05 23:48 | Inpatient (IN) | payer OTHER ==
--- OUTSIDE RECORDS SUMMARY | 2019-12-05 23:50 | XMS REPORT | Continuity of Care Document ---
:1965 Author Organization [employer] Care Team Providers Name Role Phone [employer] Unavailable Un available Problems Problem Status Onset Classification Date Comments Sourc e Date Reported LUMBAR SPRAIN Active 10/20/19 Condition 10/22/2013 Me dical AND STRAIN 14 Group MIGRAINE Active 08/05/19 Condition 10/22/2013 Medica l HEADACHE 14 Group HEADACHE Inactive 06/17/20 Condition 10/22/2013 Medica l 13 Group BENIGN Active 05/29/20 Condition 10/22/2013 Medica l PAROXYSMAL 13 Group POSITIONAL VERTIGO HYPERTENSION, Active 05/29/20 Condition 10/22/2013 Me dical BENIGN 13 Group ESSENTIAL, UNCONTROLLED Medications Medication Details Route Status Patient Ordering Order Source Instructions Provider Date METHYLPREDNISOLONE Take as Active MH (MARCI) 4 MG TABS directed 014 [facility] Group NAPROXEN 500 MG TABS 1 tablet Active MH twice 014 Medical daily as Group needed for pain BACLOFEN 10 MG TABS 1 tablet Active MH every 8 014 Medical hours as Group needed for muscle spasms or tension LISINOPRIL 20 MG Two tabs Active MH TABS PO qday 013 Medical Group CARVEDILOL 25 MG One tab PO Active MH TABS BID 013 Medical Group CHLORTHALIDONE 25 MG One tab PO Active MH TABS qday 013 Medical Group ANTIVERT 25 MG TABS One tab PO No M H TID prn Longer 013 Medical vertigo Active Group ZOFRAN 4 MG TABS One tab PO No MH q6 hous Longer 013 Medical prn nausea Active Group FLUTICASONE 2 sprays No MH PROPIONATE 50 in each Longer 013 Medical MCG/ACT SUSP nostril Active Group qam1 ANTIPYRINE-BENZOCAIN No MH E 54-14 MG/ML SOLN Longer 013 Medic al Active Group Allergies, Adverse Reactions, Alerts No Known Medication Allergies Immunizations No Data Provided for This Section Results No Data Provided for This Section Pathology Reports No Data Provided for This Section Diagnostic Reports No Data Provided for This Section Consultation Notes No Data Provided for This Section Discharge Summaries No Data Provided for This Section History and Physicals No Data Provided for This Section Vital Signs Vital Sign Value Date Comments Source Weight 171 10/19/2013 Medical Gr[facility] p Respitory Rate 18 10/19/2013 Medical Gr oup Temperature Oral (F) 96.9 F 10/19/2013 [facility] Heart Rate 46 10/19/2013 [facility] p Systolic (mm Hg) 127 10/19/2013 Medical Group Diastolic (mm Hg) 72 10/19/2013 Medical Group Weight 162 06/17/2013 Medical Gr[facility] p Temperature Oral (F) 96.6 F 06/17/2013 [facility] Systolic (mm Hg) 145 06/17/2013 Medical Group Diastolic (mm Hg) 86 06/17/2013 Medical Group Heart Rate 47 06/17/2013 Medical Grou p Height 60.5 05/29/2013 Medical Grou p Weight 163 05/29/2013 Medical Grou p Temperature Oral (F) 96.9 F 05/29/2013 [facility] n[facility] Systolic (mm Hg) 195 05/29/2013 Medical Group Diastolic (mm Hg) 101 05/29/2013 Medical Group Heart Rate 53 05/29/2013 Medical Grou p Encounters Location Location Encounter Encounter Reason Attending ADM CO Stat us Source Details Type Number For Provider Date Date Visit [facility] [id number] Fidencio 10/19 10/19 Shanda Dawn MD /2013 [facility] Lab Report [id number] Fidencio 10/22 10/22 EVERTON Dawn MD /2013 [facility] Procedures No Data Provided for This Section Assessment and Plan No Data Provided for This Section Plan of Care No Data Provided for This Section Social History No Data Provided for This Section Family History No Data Provided for This Section Advance Directives No Data Provided for This Section Functional Status No Data Provided for This Section
--- OUTSIDE RECORDS SUMMARY | 2019-12-05 23:50 | XMS REPORT ---
:1965 Author Organization [facility] t Address [address] [place] [address] Care Team Providers Name Role Phone LUKAS RIOS M.D. Unavailable Unavailable YON POSEY M.D. Unavailable Unavailable Problems Condition Condition Condition Status Onset Resolution Last Treatin g Comments Name Details Category Date Date Treatment Clinician Date Hot flashes Hot flashes Problem Active Perimenopau Perimenopau Problem Active moriah moriah History of History of Problem Resolve hypertensio hypertensio d n n Postmenopau Postmenopau Problem Active se bleeding se bleeding Visit for Visit for Problem Active screening screening for for infections infections w/predomly w/predomly sexual mode sexual mode transmissio transmissio n n Allergies, Adverse Reactions, Alerts This patient has no known allergies or adverse reactions. Medications Ordered Filled Start Stop Current Ordering Indication Dosage Frequency Signature Comments Components Medication Medication Date Date Medication? Clinician (SIG) Name Name Ingeeverton Ingeeverton Yes M.A. TABS TABS Vital Signs Vital Name Observation Time Observation Value Comments Systolic blood pressure 2019-10-19 15:08:00 130 mm[Hg] Loca tion: RUE; Position: Sittin g Diastolic blood pressure 2019-10-19 15:08:00 80 mm[Hg] Loc ation: RUE; Position: Sittin g Body height 2019-10-19 15:08:00 59 [in_us] Weight 2019-10-19 15:08:00 176 [lb_av] Body temperature 2019-10-19 15:08:00 98.2 [degF] Method: Ora l Heart Rate 2019-10-19 15:08:00 62 /min Procedures and Interventions Procedure Date / Time Performed Performing Clinici an . [facility] 2019-10-19 00:00:00 Pelvis with Pelvis Transvaginal [id number] 2019-10-19 00:00:00 History of section Encounters Start End Encounter Admission Attending Care Care Encounter Date/Time Date/Time Type Type Clinicians Facility Department ID 2019-10-19 2019-10-19 Appointment ANUEL RIOS [facility] [id number] 14:30:00 14:30:00 ; LUKAS RIOS M.D. [facility] Roberto GAYTAN [place] 2019-08-07 2019-08-07 Appointment ANUEL POSEY [facility] [id number] 13:15:00 13:15:00 ; YON POSEY COMFORT, M.D. M.D. 2019-07-27 2019-07-27 Appointment ANUEL POSEY [facility] [id number] 09:00:00 09:00:00 ; YON POSEY COMFORT, M.D. M.D. 2018-02-28 2018-02-28 [id number] 08:28:00 08:28:00 [facility] Results Test Description Test Time Test Comments Text Results Atomic Results Result Comments . [facility] 2019-10-19 00:00:00 Test Item Value Reference Range Comments Case (test code = Case) Click ImageLink button for report.
--- OUTSIDE RECORDS SUMMARY | 2019-12-05 23:50 | XMS REPORT ---
:1965 Author Organization [employer] Care Team Providers Name Role Phone Jessica Evangelista Provider Role Unavailable Allergies No Known Allergies Problems Problem Type Condition Code Onset Dates Condition Statu s Problem Hot flashes R23.2 Active Problem Perimenopausal N95.1 Active Medications No Known Medications Results No Known Results Summary Purpose [employer] Submission
--- OUTSIDE RECORDS SUMMARY | 2019-12-05 23:50 | XMS REPORT | Continuity of Care Document ---
:1965 Author Organization [facility] up Care Team Providers Name Role Phone MD Dawn Saul Unavailable Unavailable Insurance Providers Payer name Policy type / Policy ID Covered democrat ID Policy Hol sarah Coverage type [facility] Encounters Encounter Performer Location Date Office Visit Fidencio Dawn MD [facility] Oct 19, 2013 Problems Problem Effective Dates Problem Status BENIGN PAROXYSMAL POSITIONAL VERTIGO May 29, 2013 Act bakari HYPERTENSION, BENIGN ESSENTIAL, UNCONTROLLED May 29, 2013 [...] MCG/ACT 2 sprays in each nostril May Inactive SUSP qam1 ANTIVERT 25 MG TABS One tab PO TID prn vertigo Jun 17, 2013 I nactive ANTIPYRINE-BENZOCAINE 54-14 MG/ML May 29, 2013 Inactive SOLN METHYLPREDNISOLONE (MARCI) 4 MG TABS Take as directed Oct 19, 2013 Active NAPROXEN 500 MG TABS 1 tablet twice daily as Oct 19, 2013 Act bakari needed for pain BACLOFEN 10 MG TABS 1 tablet every 8 hours as Oct 19, 2013 Ac tive needed for muscle spasms or tension Vital [...]
--- OUTSIDE RECORDS SUMMARY | 2019-12-05 23:50 | XMS REPORT | Continuity of Care Document ---
:1965 Author Organization [facility] up Care Team Providers Name Role Phone MD Dawn Saul Unavailable Unavailable Insurance Providers Payer name Policy type / Policy ID Covered republican ID Policy Hol sarah Coverage type [facility] Encounters Encounter Performer Location Date Lab Report Fidencio Dawn MD [facility] Oct 22, 2013 Problems Problem Effective Dates [...]
--- OUTSIDE RECORDS SUMMARY | 2019-12-05 23:51 | XMS REPORT | Summary of Care ---
:1965 Author Name Anastacio Ybarra Address [facility] Unavailable , Care Team Providers Name Role Phone GABRIEL Mejia Unavailable Unavailable [facility] Unavailable GABRIEL CHEATHAM Unavailable Unavailable Unavailable Unavailable Unavailable Functional Status Name Dates Details Functional status health issues are not documented Status: Name Dates Details Cognitive status health issues are not documented Status: Problems Name Dates Details Postmenopause bleeding (627.1, N95.0) St atus: Active Encounter for gynecological examination with Papanicolaou smear of cervix (V72.31, Z01.419) Status: Active Visit for screening for infections w/pre domly sexual mode transmission (V74.5, Z11.3) Status: Active Medications Name Dates Details Norvasc TABS Refills: 0 Active Allergies and Adverse Reactions Name Dates Details No Known Drug Allergies (Allergy) Status : Active Past Medical History Name Dates Details History of hypertension (V12.59, Z86.79) Status: Resolved Procedures Procedure Dates Details . [facility] - PAP Date: 19-Oct-2019 Pelvis with Pelvis Transvaginal [id number] Date: 19-Oct-2019 History of section Completed Immunization Name Dates Details Immunizations not documented Social History Name Dates Details - Status: Name Dates Details Never smoked tobacco (finding) Vital Signs Date Test Result Details [id number] Systolic blood pressure 130 mm[Hg] Status: Comments: Location: RUE; Position: Sitting Diastolic blood pressure 80 mm[Hg] Status: Comment s: Location: RUE; Position: Sitting Body height 59 in Status: Weight 176 lb Status: Body mass index (BMI) [Ratio] 35.55 kg/m2 Status: Body surface area Derived from formula 1.75 m2 S tatus: Body temperature 98.2 f Status: Comments: Me thod: Oral Heart Rate 62 /min Status: Results Date Description Value Details Results not documented Plan of Care Name Dates Details Planned Observations Planned Goals not documented Interventions Provided Labs/Procedures/Imaging. [facility] - PAP; To Be Done: 19 Oct 2019US Pelvis with Pelvis Transvaginal [id number]; To Be Done: 19 Oct 2019Tobacco Use Screening; Done: 19 Oct 2019Plan-Pap, GC/CT today -TVUS ordered -discussed possible need for EMB if ES > 4 mm -all questions answered -RTC after US for results and possible EMB Instructions Name Dates Details Instructions not documented Encounters Appointment; YON POSEY M.D. On: 27-Jul-2019 9: 00 Encounter Diagnosis: Problem not documented Appointment; YON POSEY M.D. On: 07-Aug-2019 13 :15 Encounter Diagnosis: Problem not documented Appointment; LUKAS RIOS M.D. On: 19-Oct-2019 14:30 Encounter Diagnosis: Problem not documented
--- OUTSIDE RECORDS SUMMARY | 2019-12-05 23:51 | XMS REPORT | Summary of Care ---
:1965 Author Name GABRIEL Mejia Address Unavailable Unavailable , Care Team Providers Name Role Phone [facility] Unavailable Unavailable GABRIEL CHEATHAM [...] Name Dates Details Norvasc TABS Refills: 0 M.A.Active Allergies and Adverse Reactions Name Dates Details No Known Drug Allergies (Allergy) Status : Active Past Medical History Name Dates Details History of hypertension (V12.59, Z86.79) Status: Resolved Procedures Procedure Dates Details US Pelvis with Pelvis Transvaginal [id number] Date: 19-Oct-2019 History of section Completed Immunization Name Dates Details Immunizations not documented Social History Name Dates Details - Status: Name Dates Details Never smoked tobacco (finding) Vital Signs Date Test Result Details [id number] Systolic blood pressure 130 mm[Hg] Status: Comments: Location: E; Position: Sitting Diastolic blood pressure 80 mm[Hg] Status: Comment s: Location: RUE; Position: Sitting Body height 59 in Status: Weight 176 lb Status: Body mass index (BMI) [Ratio] 35.55 kg/m2 Status: Body surface area Derived from formula 1.75 m2 S tatus: Body temperature 98.2 f Status: Comments: Me thod: Oral Heart Rate 62 /min Status: Results Date Description Value Details [id number] . [facility] - PAP Case Click ImageLink button for repor t. (Normal) Plan of Care Name Dates Details Planned Observations Planned Goals not documented Instructions Name Dates Details Instructions not documented Encounters Appointment; YON POSEY M.D. On: 27-Jul-2019 9: 00 Encounter Diagnosis: Problem not documented Appointment; YON POSEY M.D. On: 07-Aug-2019 13 :15 Encounter Diagnosis: Problem not documented Appointment; LUKAS RIOS M.D. On: 19-Oct-2019 14:30 Encounter Diagnosis: Problem not documented
[2019-12-06] MEDS ORDERED: LIDOCAINE 1% MPF 30 ML VIAL ONE (00:15)
--- NOTE | 2019-12-06 00:27 | EDPHYS ---
Physician Documentation [facility] Name: Renea Mcmahan Age: 54 yrs Sex: Female : 1965 Arrival Date: 12/05/2019 Time: 23:50 Bed 15 Private MD: ED Physician Enrrique Frances HPI: 12/05 00:30 This 54 yrs old Black Female presents to ER via Ambulatory with complaints of Abscess. snw 00:30 The patient presents with an abscess of the lateral aspect of right thigh, The patient snw presents with cellulitis of the lateral aspect of right thigh. Description: The affected area is large, approximately 15 cm(s), erythematous, hot, raised, swollen. Onset: The symptoms/episode began/occurred 3 day(s) ago. Possible cause(s): insect sting. Severity of symptoms: At their worst the symptoms were moderate. The patient has not experienced similar symptoms in the past. Saw Dr. Daly and was started on Bactrim and Augmentin yesterday. Historical: - Allergies: 00:07 No Known Allergies; lp1 - Home Meds: 00:07 Norvasc Oral [Active]; amlodipine oral [Active]; lp1 - PMHx: 00:07 Hypertension; lp1 - PSHx: 00:07 ; lp1 - Immunization history:: Adult Immunizations up to date. - Social history:: Smoking status: Patient denies any tobacco usage or history of. ROS: 00:29 Constitutional: Negative for fever, chills, and weight loss, Eyes: Negative for injury, snw pain, redness, and discharge, ENT: Negative for injury, pain, and discharge, Neck: Negative for injury, pain, and swelling, Cardiovascular: Negative for chest pain, palpitations, and edema, Respiratory: Negative for shortness of breath, cough, wheezing, and pleuritic chest pain, Abdomen/GI: Negative for abdominal pain, nausea, vomiting, diarrhea, and constipation, Back: Negative for injury and pain, : Negative for injury, bleeding, discharge, and swelling, MS/Extremity: Negative for injury and deformity, Neuro: Negative for headache, weakness, numbness, tingling, and seizure, Psych: Negative for depression, anxiety, suicide ideation, homicidal ideation, and hallucinations. 00:29 Skin: Positive for cellulitis, of the lateral aspect of right thigh, area to medial dorsal thigh starting x today with erythema, tenderness. Exam: 00:28 Constitutional: This is a well developed, well nourished patient who is awake, alert, snw and in no acute distress. Head/Face: Normocephalic, atraumatic. Eyes: Pupils equal round and reactive to light, extra-ocular motions intact. Lids and lashes normal. Conjunctiva and sclera are non-icteric and not injected. Cornea within normal limits. Periorbital areas with no swelling, redness, or edema. ENT: Nares patent. No nasal discharge, no septal abnormalities noted. Tympanic membranes are normal and external auditory canals are clear. Oropharynx with no redness, swelling, or masses, exudates, or evidence of obstruction, uvula midline. Mucous membranes moist. Neck: Trachea midline, no thyromegaly or masses palpated, and no cervical lymphadenopathy. Supple, full range of motion without nuchal rigidity, or vertebral point tenderness. No Meningismus. Chest/axilla: Normal chest wall appearance and motion. Nontender with no deformity. No lesions are appreciated. Cardiovascular: Regular rate and rhythm with a normal S1 and S2. No gallops, murmurs, or rubs. Normal PMI, no JVD. No pulse deficits. Respiratory: Lungs have equal breath sounds bilaterally, clear to auscultation and percussion. No rales, rhonchi or wheezes noted. No increased work of breathing, no retractions or nasal flaring. Abdomen/GI: Soft, non-tender, with normal bowel sounds. No distension or tympany. No guarding or rebound. No evidence of tenderness throughout. Back: No spinal tenderness. No costovertebral tenderness. Full range of motion. MS/ Extremity: Pulses equal, no cyanosis. Neurovascular intact. Full, normal range of motion. Neuro: Awake and alert, GCS 15, oriented to person, place, time, and situation. Cranial nerves II-XII grossly intact. Motor strength 5/5 in all extremities. Sensory grossly intact. Cerebellar exam normal. Normal gait. Psych: Awake, alert, with orientation to person, place and time. Behavior, mood, and affect are within normal limits. 00:28 Skin: Appearance: normal except for affected area, cellulitis, that is severe, well demarcated, on the lateral aspect of right thigh, [id number] induration surrounding a medium sized cutaneous abscess with multiple pustules. Vital Signs: 00:04 BP 151 / 93; Pulse 68; Resp 18; Temp 98.9(O); Pulse Ox 98% on R/A; Weight 78.02 kg (R); lp1 Height 4 ft. 11 in. (149.86 cm); Pain 6/10; 01:48 BP 139 / 79; Pulse 56; Resp 18; Pulse Ox 100% on R/A; Pain 3/10; vc 00:04 Body Mass Index 34.74 (78.02 kg, 149.86 cm) lp1 MDM: 00:10 Patient medically screened. snw 00:27 Data reviewed: vital signs, nurses notes. Data interpreted: Pulse oximetry: on room air snw is 98 %. Interpretation: normal. Counseling: I had a detailed discussion with the patient and/or guardian regarding: the historical points, exam findings, and any diagnostic results supporting the discharge/admit diagnosis, the presence of at least one elevated blood pressure reading (>120/80) during this emergency department visit, lab results, the need for further work-up and treatment in the hospital. Physician consultation: Paco Garcia MD was called at 00:27, was contacted at 00:27, regarding admission, to the medical/surgical unit. Pt would like Dr. Wise consulted. 12/05 00:25 Order name: Blood Culture Adult (2) snw 12/05 00:25 Order name: CBC with Diff; Complete Time: 01:14 snw 12/05 00:25 Order name: Chem 7; Complete Time: 01:14 snw 12/05 00:25 Order name: NPO; Complete Time: 00:46 snw 12/05 01:07 Order name: CONS Physician Consult EDMS 12/05 01:07 Order name: NPO EDMS Administered Medications: 01:00 Drug: Clindamycin 600 mg Route: IVPB; Infused Over: 30 mins; Site: right antecubital; vc 01:30 Follow up: IV Status: Completed infusion; IV Intake: 50ml vc 01:00 Drug: fentaNYL (PF) 50 mcg Route: IVP; Site: right antecubital; vc 01:30 Follow up: Response: No adverse reaction; Pain is decreased vc 01:05 Drug: NS 0.9% 1000 ml Route: IV; Rate: 125 ml/hr; Site: right antecubital; vc 02:00 Follow up: IV Status: Infusion continued upon admission vc Disposition: 12/06/19 00:26 Hospitalization ordered by Paco Garcia for Inpatient Admission. Preliminary diagnosis are Cellulitis of right lower limb, Cutaneous abscess of right lower limb, Failed outpatient therapy. - Bed requested for Telemetry/MedSurg (Inpatient). - Status is Inpatient Admission. vc - Condition is Stable. - Problem is new. - Symptoms have worsened. Addendum: 12/07/2019 07:13 Co-signature as Attending Physician, Enrrique Frances MD I agree with the assessment and m h7 plan of care. Signatures: Dispatcher [employer] EDMS Janel Paula RN RN mw Manjula Olivera, [employer]-C [employer]-Csnw Che Calvert RN RN lp1 Kimmy Lopez RN RN vc Enrrique Frances MD MD mh7 Corrections: (The following items were deleted from the chart) 12/05 00:27 00:26 Hospitalization Ordered by Paco Garcia MD for Inpatient Admission. Preliminary snw diagnosis is Cellulitis of right lower limb. Bed requested for Telemetry/MedSurg (Inpatient). Status is Inpatient Admission. Condition is Stable. Problem is new. Symptoms have worsened. snw 00:42 00:27 12/06/2019 00:26 Hospitalization Ordered by Paco Garcia MD for Inpatient snw Admission. Preliminary diagnosis is Cellulitis of right lower limb; Cutaneous abscess of right lower limb. Bed requested for Telemetry/MedSurg (Inpatient). Status is Inpatient Admission. Condition is Stable. Problem is new. Symptoms have worsened. snw 01:33 00:42 12/06/2019 00:26 Hospitalization Ordered by Paco Garcia MD for Inpatient mw Admission. Preliminary diagnosis is Cellulitis of right lower limb; Cutaneous abscess of right lower limb; Failed outpatient therapy. Bed requested for Telemetry/MedSurg (Inpatient). Status is Inpatient Admission. Condition is Stable. Problem is new. Symptoms have worsened. snw 02:19 01:33 12/06/2019 00:26 Hospitalization Ordered by Paco Garcia MD for Inpatient vc Admission. Preliminary diagnosis is Cellulitis of right lower limb; Cutaneous abscess of right lower limb; Failed outpatient therapy. Bed requested for Telemetry/MedSurg (Inpatient). Status is Inpatient Admission. Condition is Stable. Problem is new. Symptoms have worsened. mw
--- NOTE | 2019-12-06 00:27 | ER ---
Nurse's Notes [facility] Name: Renea Mcmahan Age: 54 yrs Sex: Female : 1965 Arrival Date: 12/05/2019 Time: 23:50 Bed 15 Private MD: Diagnosis: Cellulitis of right lower limb;Cutaneous abscess of right lower limb;Failed outpatient therapy Presentation: 12/05 00:04 Chief complaint: Patient states: Abscess to back of upper right thigh, began on Saturday lp1 when she may have been bitten by something; States worsening swelling, pain and redness and new abscess to front of right upper thigh/groin area; Denies fever. Coronavirus screen: Proceed with normal triage. Ebola Screen: No symptoms or risks identified at this time. Initial Sepsis Screen: Does the patient meet any 2 criteria? No. Patient's initial sepsis screen is negative. Does the patient have a suspected source of infection? No. Patient's initial sepsis screen is negative. Risk Assessment: Do you want to hurt yourself or someone else? Patient reports no desire to harm self or others. Onset of symptoms was December 06, 2019. 00:04 Method Of Arrival: Ambulatory lp1 00:04 Acuity: JANNETH 4 lp1 Triage Assessment: 00:00 General: Appears in no apparent distress. General: Behavior is calm, cooperative, vc appropriate for age. Pain: Complains of pain in right leg Pain does not radiate. Pain currently is 6 out of 10 on a pain scale. Quality of pain is described as pressure, throbbing, Alleviated by medications, Aggravated by repositioning, Noted to be Also complains of inability to work, inability to perform activities of daily living. Historical: - Allergies: 00:07 No Known Allergies; lp1 - Home Meds: 00:07 Norvasc Oral [Active]; amlodipine oral [Active]; lp1 - PMHx: 00:07 Hypertension; lp1 - PSHx: 00:07 ; lp1 - Immunization history:: Adult Immunizations up to date. - Social history:: Smoking status: Patient denies any tobacco usage or history of. Screenin:07 Abuse screen: Denies threats or abuse. Denies injuries from another. Nutritional lp1 screening: No deficits noted. Tuberculosis screening: No symptoms or risk factors identified. Fall Risk None identified. Assessment: 00:00 General: Appears in no apparent distress. uncomfortable, Behavior is calm, cooperative, vc appropriate for age. Pain: Complains of pain in right leg. Neuro: Level of Consciousness is awake, alert, obeys commands, Oriented to person, place, time, situation, Appropriate for age. Cardiovascular: Capillary refill < 3 seconds Patient's skin is warm and dry. Respiratory: Airway is patent Respiratory effort is even, unlabored, Respiratory pattern is regular, symmetrical. Derm: Skin temperature is hot hot on posterior, right thigh. 01:00 Reassessment: Patient appears in no apparent distress at this time. Patient and/or vc family updated on plan of care and expected duration. Pain level reassessed. Patient states symptoms have improved. 02:00 Reassessment: Patient appears in no apparent distress at this time. Patient and/or vc family updated on plan of care and expected duration. Pain level reassessed. Patient states feeling better. Patient states symptoms have improved. Vital Signs: 00:04 BP 151 / 93; Pulse 68; Resp 18; Temp 98.9(O); Pulse Ox 98% on R/A; Weight 78.02 kg (R); lp1 Height 4 ft. 11 in. (149.86 cm); Pain 6/10; 01:48 BP 139 / 79; Pulse 56; Resp 18; Pulse Ox 100% on R/A; Pain 3/10; vc 00:04 Body Mass Index 34.74 (78.02 kg, 149.86 cm) lp1 ED Course: 12/04 23:50 Patient arrived in ED. lp1 23:52 Manjula Oliver[facility]-C [facility] snw 23:52 Enrrique Frances MD is Attending Physician. snw 23:53 Kimmy Lopez RN is Primary Nurse. vc 12/05 00:06 Triage completed. lp1 00:06 Arm band placed on. lp1 00:07 Patient has correct armband on for positive identification. lp1 00:25 Paco Garcia MD is Hospitalizing Provider. snw 02:15 No provider procedures requiring assistance completed. Patient admitted, IV remains in vc place. Administered Medications: 01:00 Drug: Clindamycin 600 mg Route: IVPB; Infused Over: 30 mins; Site: right antecubital; vc 01:30 Follow up: IV Status: Completed infusion; IV Intake: 50ml vc 01:00 Drug: fentaNYL (PF) 50 mcg Route: IVP; Site: right antecubital; vc 01:30 Follow up: Response: No adverse reaction; Pain is decreased vc 01:05 Drug: NS 0.9% 1000 ml Route: IV; Rate: 125 ml/hr; Site: right antecubital; vc 02:00 Follow up: IV Status: Infusion continued upon admission vc Intake: 01:30 IV: 50ml; Total: 50ml. vc Outcome: 00:26 Decision to Hospitalize by Provider. snw 02:15 Admitted to Med/surg accompanied by tech, via stretcher, room 222, with chart, Report vc called to Keiko. RN 02:15 Condition: good 02:15 Instructed on the need for admit. vc 02:19 Patient left the ED. vc Signatures: Manjula Olivera, [employer]Csnw Che Calvert, RN RN lp1 Kimmy Lopez RN RN vc
[2019-12-06 00:54] LABS: Absolute Lymphocytes (CBC) 2.6 K/uL (0.7-4.9); Basophils % 1.1 % (0-1.3); Hematocrit 42.2 % (36.0-45.0); Lymphocytes % 41.1 % (15.3-44.8); MPV 8.1 fL (7.6-11.3)
[2019-12-06] MEDS ORDERED: FENTANYL CITR 100 MCG/2 ML ONE ×2 (00:56→10:30)
[2019-12-06] MEDS ORDERED: NA CHLORIDE 0.9% 1,000 ML ONE (00:56)
[2019-12-06] MEDS ORDERED: CLINDAMYCIN 600MG/D5W 600 MG/50 ML BAG IV ONE (00:57)
[2019-12-06 01:09] LABS: Potassium 3.6 mmol/L (3.5-5.1)
[2019-12-06 02:28] VITALS: BMI 34.7
[2019-12-06] MEDS: NA CHLORIDE 0.9% 1,000 ML IV SCH ×2 (03:04→15:59)
[2019-12-06] MEDS: MORPHINE 4 MG/ML SYR IV PRN ×3 (06:06→21:54)
[2019-12-06] MEDS: AMLODIPINE 5 MG TAB PO SCH (08:49)
[2019-12-06] MEDS: VALSARTAN 160 MG TAB PO SCH (08:49)
[2019-12-06] MEDS ORDERED: HOME MED 1 EA UNK (Olmesartan Medoxomil [Olmesartan Medoxomil] 40 MG) PO SCH (09:00)
[2019-12-06] MEDS ORDERED: CLINDAMYCIN PHOSPHATE 600 MG in NA CHLORIDE 0.9% 50 ML IV SCH (09:00)
--- NOTE | 2019-12-06 09:55 | P.HP ---
Certification for Inpatient Patient admitted to: Inpatient With expected LOS: >2 Midnights Practitioner: I am a practitioner with admitting privileges, knowledge of patient current condition, hospital course, and medical plan of care. Services: Services provided to patient in accordance with Admission requirements found in Title 42 Section 412.3 of the Code of Federal Regulations Patient History Date of Service: 12/06/19 Reason for admission: R THIGH ABSCESS History of Present Illness: MS. PRICE HAS HTN. SHE FAILED AUGMENTIN AND DOXYCYLCIN BY DR. KU A DAY AGO FOR INFECTION OF THIGH. SHE REPORTS BACK TO ER. SHE IS TAKEN BY DR. VUONG FOR SURGERY. Allergies No Known Allergies Allergy (Verified 11/25/18 23:11) Home Medications: Amlodipine [Norvasc*] 5 mg PO DAILY 11/25/18 Olmesartan Medoxomil 40 mg PO DAILY 12/06/19 - Past Medical/Surgical History Has patient received pneumonia vaccine in the past: No Diabetic: No -: HTN -: c-sect -: tonsillectomy -: skin sample removed on scalp - Family History Father -: Other (see notes) Notes: no medical concerns Mother -: Heart disease - Social History Smoking Status: Never smoker Alcohol use: Yes CD- Drugs: No Caffeine use: Yes Place of Residence: Home Review of Systems 10-point ROS is otherwise unremarkable Physical Examination - Vital Signs Temperature: 96.7 F Blood Pressure: 130/78 Pulse: 62 Respirations: 16 Pulse Ox (%): 98 - Physical Exam General: Alert, Mild distress, Moderate distress HEENT: Atraumatic, PERRLA, Mucous membr. moist/pink, EOMI, Sclerae nonicteric Neck: Supple, 2+ carotid pulse no bruit, No LAD, Without JVD or thyroid abnormality Respiratory: Clear to auscultation bilaterally, Normal air movement Cardiovascular: Regular rate/rhythm, Normal S1 S2 Gastrointestinal: Normal bowel sounds, No tenderness Musculoskeletal: No tenderness Integumentary: No rashes Neurological: Normal gait, Normal speech, Normal strength at 5/5 x4 extr, Normal tone, Normal affect Lymphatics: No axilla or inguinal lymphadenopathy - Studies Laboratory Data (last 24 hrs) 12/06/19 00:31: Sodium 141, Potassium 3.6, BUN 17, Creatinine 1.39 H, Glucose 102 12/06/19 00:31: WBC 6.4, Hgb 13.9, Hct 42.2, Plt Count 293 Assessment and Plan - Problems (Diagnosis) (1) Thigh abscess Current Visit: Yes Status: Acute Plan: IV ABX, STOP CLINDAMYCIN IT HAS 25% RISK OF C DIFF INFECTIONS. 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 (2) HTN (hypertension) Current Visit: Yes Status: Chronic Plan: RESUME MEDS. CREAT MILD HIGH FROM BEING ON DIURETIC ALSO IN BP MEDS. Qualifiers: Hypertension type: essential hypertension Qualified Code(s): I10 - Essential (primary) hypertension - Advance Directives Does patient have a Living Will: No Does patient have a Durable POA for Healthcare: No
[2019-12-06] MEDS ORDERED: BUPIVACAINE 0.5% PF 10 ML VIAL ONE (10:20)
[2019-12-06] MEDS ORDERED: MIDAZOLAM HCL 2 MG/2 ML INJ ONE (10:30)
[2019-12-06] MEDS ORDERED: propofoL 200 MG/20 ML VIAL IV ONE (10:30)
--- NOTE | 2019-12-06 10:58 | P.BOP ---
Preoperative diagnosis: complex abscess posterior right thigh, cellulitis Postoperative diagnosis: same Primary procedure: I &D complex abscess posterior right thigh 7 x 6 cm Estimated blood loss: <10cc Specimen: cult Findings: pus Anesthesia: General Complications: None Drain(s): Other (08/01 " nugauze) Transferred to: Recovery Room Condition: Good
[2019-12-06] MEDS ORDERED: KETOROLAC 30 MG/ML INJ ONE (11:44)
[2019-12-06] MEDS ORDERED: ONDANSETRON 4 MG/2 ML VIAL ONE (11:44)
--- NOTE | 2019-12-06 13:50 | CON ---
Date of Consultation: 12/06/2019 Reason For Service: Right thigh abscess. History Of Present Illness: This is a 54-year-old patient, and she has developed redness and tendern ess and swelling over the right posterior thigh region. She does not remember exactly what happened although she was stating in not her usual place and just with some friends. She thinks something craps manager wl and might be a bite, she is not sure. She does not recall any puncture wound or any foreign steve s. The area got worse to the point that it got very tender, red, spreading. She came to the ER, adm itted to the hospital for antibiotics and abscess was found and a surgical consult obtained for drain . She denies any dysuria, hematuria, hematochezia, or melena. Denies any recent traveling out of [facility] [place]. Denies any family member sick at home. Review of Systems: 10-point otherwise unremarkable. Allergies: NONE. Medical Problems: Hypertension. Surgeries: C-sections. Social History: She does not smoke. She does not drink alcohol. Medications: Norvasc, amlodipine. Physical Examination: GENERAL: Patient is awake and alert. HEENT: Pupils are equal and reactive, anicteric. Neck: Supple. Chest: Clear. Heart: S1, S2. Abdomen: Soft and depressible. Nontender, distended. Breasts: Deferred. Genitalia: Deferred. Rectal: Deferred. Skin: Over the right posterior thigh region patient has an area of erythema about 10 x 10 cm with fl uctuance. Extremities: Over the right thigh region, patient has 2 areas. In the back, patient had this 10 x 1 0 cm fluctuance abscess present. In the front, patient has erythema but I cannot feel any abscess or fluctuation yet. Dorsalis pedis pulses are present. Laboratory Data: Blood work shows a WBC count of 6.4, hemoglobin of 13.9 with a potassium 3.6. Assessment: This is a 54-year-old patient with right thigh abscess. Incision and drainage fully exp lained to the patient, which include but are not limited to infection, bleeding, damage to adjacent s tructures, anesthesia complication, nonhealing wound, myocardial infarction, and even . She als o understands this may not relieve any symptoms. She might need more than one surgical intervention. She understands she will require wound care. HM/MODL Voice ID: [id number] Report ID: [id number]
[2019-12-06] MEDS: HYDROCODONE/APAP 5/325 MG TAB PO PRN (18:58)
--- NOTE | 2019-12-06 21:38 | OP ---
Date of Procedure: 12/06/2019 Surgeon: Wilman Wise MD Preoperative Diagnosis: Complex abscess, posterior right thigh and cellulitis. Postoperative Diagnosis: Complex abscess, posterior right thigh and cellulitis. Procedure: Incision and drainage of complex abscess, posterior right thigh, 7 x 6 cm. Estimated Blood Loss: Less than 10 cc. Anesthesia: General plus local. Packing: Quarter of an inch Nu Gauze. Indication: This is the case of a 54-year-old patient with above diagnosis. Fully explained the mervin efits, alternatives, and risks of incision and drainage of posterior thigh abscess which include, but not limited to infection, bleeding, damage to adjacent structures, anesthesia complication, nonheali ng wound, NC, and even . She also understands this may not relieve any symptoms. She might nee d 1 surgical intervention. She understood, signed a consent. The area was marked by me in the patie nt in the holding room. Description Of Procedure: Patient was brought to the operating room, placed in supine position. Ane sthesia was done without complication. The patient was placed in lateral decubitus position with pro per protection. The right thigh was prepped and draped in a sterile fashion. Local anesthesia was a pplied after time-out was call. An incision was made over the area. This abscess is deep into the d eep subcutaneous tissue. It goes about 2 cm deep. The abscess about 7 x 6 cm with loculations that were explored and opened. Hemostasis obtained. The area was irrigated. Cultures were obtained prev iously and the area was packed with Nu gauze quarter of an inch. The patient tolerated the procedure well. Area was covered with sterile dressings. Patient will be sent to recovery, currently in stable condition. LUIS FERNANDO/TAYLOR Voice ID: [id number] Report ID: [id number]
[2019-12-07] MEDS: DIPHENHYDRAMINE 50 MG/ML VIAL IV PRN ×2 (00:02→08:46)
[2019-12-07] MEDS: NA CHLORIDE 0.9% 1,000 ML IV SCH ×2 (00:08→08:00)
[2019-12-07] MEDS: HYDROCODONE/APAP 5/325 MG TAB PO PRN (08:45)
[2019-12-07] MEDS: AMLODIPINE 5 MG TAB PO SCH (08:47)
[2019-12-07] MEDS: VALSARTAN 160 MG TAB PO SCH (08:47)
[2019-12-07 08:51] VITALS: BP 149/82
[2019-12-07 12:12] VITALS: O2SAT 98
[2019-12-07 12:48] VITALS: TEMP 97
== END 2019-12-07 12:33 | disposition home or self-care (01) | DRG 581 ==
LOC: ER 23:48 → ERHOLD 12-06 01:13 → 2ND 12-06 01:54
PROVIDERS: ADMIT Internal Medicine; ATTEND Internal Medicine
PROC: 0J9N0ZZ Drainage of Right Lower Leg Subcutaneous Tissue and Fascia, Open Approach (ICD-10-PCS; principal; 2019-12-06 10:00)
DX: L02.415 Cutaneous abscess of right lower limb (principal); L03.115 Cellulitis of right lower limb; I10 Essential (primary) hypertension; Z79.899 Other long term (current) drug therapy
CPT/HCPCS: 36415; 80048; 80202; 81025; 85025; 87040; 87070; 87075; 87205; 96365; 96375; 99285; J1200; J2250; J2405; J2704; J3010; J7030; S0077

== ENCOUNTER 2020-02-01 05:43 | Emergency (ER) | payer OTHER ==
--- OUTSIDE RECORDS SUMMARY | 2020-02-01 05:46 | XMS REPORT | Continuity of Care Document ---
:1965 Author Organization [facility] t Address [address] [place] [address] Care Team Providers Name Role Phone GABRIEL Attending Clinician Unavailable KALPESH Attending Clinician Unavailable Problems Condition Condition Condition Status Onset Resolution Last Treating Co mments Source Name Details Category Date Date Treatment Clinician Date LUMBAR Condition Active 2013-10-22 Mem [facility] SPRAIN AND 10-19 06:16:00 l STRAIN LUMBAR 00:00: Micky SPRAIN AND 00 STRAIN Active 10/19/2013 [facility] MIGRAINE Condition Active 2013-10-22 M emoria HEADACHE 1-08 06:16:00 l MIGRAINE 00:00: Elie n HEADACHE 00 Active 08/05/2013 [facility] BENIGN Condition Active 2012-072013-10-22 Mem oria PAROXYSMAL 1- 06:16:00 l POSITIONAL BENIGN 00:00: [facility] VERTIGO PAROXYSMAL 00 POSITIONAL VERTIGO Active 05/29/2013 [facility] HYPERTENSI Condition Active 2012-072013-10-22 Memoria ON, BENIGN 07-29 06:16:00 l ESSENTIAL, 00:00: Elie n UNCONTROLL HYPERTENSI 00 ED ON, BENIGN ESSENTIAL, UNCONTROLL ED Active 3 Condition 10/22/2013 Medical Group Hot Hot Problem Active [facility] Perimenopa Perimenopa Problem Active [facility] History of History of Problem Resolve [facility] hypertensi hypertensi d it y of on on [place] [facility] Postmenopa Postmenopa Problem Active [facility] nivers use use ity of bleeding bleeding [place] [facility] Visit for Visit for Problem Active Uni vers screening screening ity of for for [place] infections infections Ph ysici w/predomly w/predomly an s sexual sexual mode mode transmissi transmissi on on History of Past Illness Condition Condition Condition Status Onset Resolution Last Treating Co mments Source Name Details Category Date Date Treatment Clinician Date HEADACHE Condition Inactiv 2012-072013-10-22 2013-10-22 Memoria e - 06:16:00 06:16:00 l HEADACHE 00:00: Elie n 00 Inactive 06/17/2013 [facility] Allergies, Adverse Reactions, Alerts This patient has no known allergies or adverse reactions. Social History Smoking Status Start Date Stop Date Source Never smoked tobacco (finding) [facility] Medications Ordered Filled Start Stop Current Ordering Indication Dosage Frequency Signature Comments Components Source Medication Medication Date Date Medication? Clinician (SIG) Name Name METHYLPREDN Yes Take as Mem [facility]ria ISOLONE 3-24 directed l (MARCI) 4 MG 00:00: Micky TABS 00 NAPROXEN Yes 1 tablet Memor ia 500 MG TABS 3-24 twice l 00:00: daily as [place] 00 needed for pain BACLOFEN 10 Yes 1 tablet Me moria MG TABS 3-24 every 8 l 00:00: hours as [place] needed for muscle spasms or tension LISINOPRIL 2012-07 Yes Two tabs Mem oria 20 MG TABS 2-19 PO qday l 00:00: [place] CARVEDILOL 2012-07 Yes One tab PO M emoria 25 MG TABS 2-19 BID l 00:00: Micky CHLORTHALID 2012-07 Yes One tab PO Memoria ONE 25 MG 1-20 qday l TABS 00:00: Micky ANTIVERT 25 2012-07 No One tab PO Memoria MG TABS 1-20 TID prn l 00:00: vertigo [place] 00 ZOFRAN 4 MG 2012-07 No One tab PO Memoria TABS 1-01 q6 hous l 00:00: prn nausea [place] FLUTICASONE 2012-07 No 2 sprays Me moria PROPIONATE 1-01 in each l 50 MCG/ACT 00:00: nostril [facility] SUSP 00 qam1 ANTIPYRINE- 2012-07 No Memori a BENZOCAINE 1-01 l 54-14 MG/ML 00:00: Elie n SOLN 00 Norvasc Norvasc Yes [facility] TABS TABS [facility] [place] [facility] Vital Signs Vital Name Observation Time Observation Value Comments Source Systolic blood 2019-10-19 130 mm[Hg] Location: [facility] 15:08:00 Position: [place] [facility] Diastolic blood 2019-10-19 80 mm[Hg] Location: [facility] 15:08:00 Position: [place] [facility] Body height 2019-10-19 59 [in_us] [facility] 15:08:00 [place] [facility] Weight 2019-10-19 176 [lb_av] [facility] 15:08:00 [place] [facility] Body mass index 2019-10-19 35.55 kg/m2 [facility] (BMI) [Ratio] 15:08:00 [place] [facility] Body temperature 2019-10-19 98.2 [degF] Method: Oral [facility] 15:08:00 [place] [facility] Heart Rate 2019-10-19 62 /min [facility] 15:08:00 [place] [facility] Weight 2013-10-19 [facility] 20:27:42 Respitory Rate 2013-10-19 [facility] 20:27:42 Temperature Oral 2013-10-19 96.9 F [facility] (F) 20:27:42 Heart Rate 2013-10-19 [facility] n 20:27:42 Systolic (mm Hg) 2013-10-19 [facility] 20:27:42 Diastolic (mm Hg) 2013-10-19 [facility] 20:27:42 Weight 2013-06-17 [facility] n 14:25:51 Temperature Oral 2013-06-17 96.6 F [facility] (F) 14:25:51 Systolic (mm Hg) 2013-06-17 [facility] 14:25:51 Diastolic (mm Hg) 2013-06-17 [facility] 14:25:51 Heart Rate 2013-06-17 [facility] n 14:25:51 Height 2013-05-29 [facility] n 15:00:06 Weight 2013-05-29 [facility] n 15:00:06 Temperature Oral 2013-05-29 96.9 F [facility] (F) 15:00:06 Systolic (mm Hg) 2013-05-29 [facility] 15:00:06 Diastolic (mm Hg) 2013-05-29 [facility] 15:00:06 Heart Rate 2013-05-29 [facility] Elie n 15:00:06 Procedures Procedure Date / Time Performing Clinician Source Performed . [facility] - PAP 2019-10-19 00:00:00 [place] [facility] US Pelvis with Pelvis 2019-10-19 00:00:00 [facility] Transvaginal [id number] Physicians History of [place] [facility] section Physicians Encounters Start End Encounter Admission Attending Care Care Encounter Source Date/Time Date/Time Type Type Clinicians Facility Department ID 2019-10-19 2019-10-19 Appoint[facility]UEL [facility] [id number] [facility] 14:30:00 14:30:00 t; LUKAS RIOS M.D. [facility] 2019-08-07 2019-08-07 ANUEL Phillips [facility] [id number] Univers 13:15:00 13:15:00 t; conner MARVIN M.D. [place] [facility] M.D. ans 2019-07-27 2019-07-27 ANUEL Phillips [facility] [id number] Univers 09:00:00 09:00:00 t; conner MARVIN M.D. [place] [facility] M.D. ans 2018-02-28 2018-02-28 [facility] [id number] [address] 08:28:00 08:28:00 [facility] Results Test Description Test Time Test Comments Results Result Comments Source . [facility] - [facility] 2019-10-19 00:00:00 Test Item Value Reference Range Interpretation Comme nts Case (test code = Case) Click ImageLink button for report. N [facility] Phys[facility]
--- OUTSIDE RECORDS SUMMARY | 2020-02-01 05:46 | XMS REPORT | Continuity of Care Document ---
:1965 Author Organization [facility] Care Team Providers Name Role Phone [facility] Unavailable Un available Problems Problem Status Onset [...] Location Location Encounter Encounter Reason Attending ADM [place] Stat us Source Details Type Number For Provider Date Date Visit [facility] [id number] Fidencio 10/19 10/19 Shanda Dawn MD /2013 [facility] Lab Report [id number] Fidencio 10/22 10/22 EVERTON Dawn MD /2013 [facility] [place] Procedures No Data Provided for This Section [...]
[2020-02-01] MEDS ORDERED: ACETAMINOPHEN 500 MG TAB ONE (06:25)
--- NOTE | 2020-02-01 07:04 | ER ---
Nurse's Notes [facility] Name: Renea Mcmahan Age: 54 yrs Sex: Female : 1965 Arrival Date: 02/01/2020 Time: 05:46 Bed 6 Private MD: Diagnosis: Influenza due to identified novel influenza A virus Presentation: 01/31 06:00 Chief complaint: Patient states: I am having generalized body ache, flu like symptoms, rr5 T 100.1 F, chills , cough and congestion started couple of hours ago. 06:00 Coronavirus screen: Surgical mask placed on patient. Patient moved to private room, rr5 placed in contact and droplet isolation with eye protection until further assessment. Patient reports a cough. Patient denies shortness of breath or difficulty breathing. Patient reports a measured and/or subjective temperature greater than 100.4F. Patient denies travel on a cruise ship or to a country the [facility] currently lists as an affected area. Patient reports contact with known and/or suspected case of COVID-19. Ebola Screen: Patient negative for fever greater than or equal to 101.5 degrees Fahrenheit, and additional compatible Ebola Virus Disease symptoms Patient denies exposure to infectious person. Patient denies travel to an Ebola-affected area in the 21 days before illness onset. Initial Sepsis Screen: Does the patient meet any 2 criteria? No. Patient's initial sepsis screen is negative. Does the patient have a suspected source of infection? Yes: Productive cough/pneumonia. Risk Assessment: Do you want to hurt yourself or someone else? Patient reports no desire to harm self or others. Onset of symptoms was February 01, 2020. 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 - Social history:: Smoking status: unknown Patient/guardian denies using alcohol, street drugs, tobacco products. Screenin:28 Abuse screen: Denies threats or abuse. Denies injuries from another. Nutritional rr5 screening: No deficits noted. Tuberculosis screening: No symptoms or risk factors identified. Fall Risk None identified. Total [place] Fall Scale indicates No Risk (0-24 pts). Assessment: 06:00 General: Appears in no apparent distress. comfortable, Behavior is calm, cooperative, rr5 appropriate for age, Reports chills for fever for feeling ill for fatigue for. 06:00 Pain: Complains of pain in all over the body Pain currently is 4 out of 10 on a pain rr5 scale. Quality of pain is described as aching, Pain began gradually, Is intermittent. Neuro: Level of Consciousness is awake, alert, obeys commands, Oriented to person, place, time, situation. Cardiovascular: Denies chest pain, Capillary refill < 3 seconds Patient's skin is warm and dry. Respiratory: Reports cough that is Airway is patent Respiratory effort is even, unlabored, Respiratory pattern is regular, symmetrical. GI: Reports nausea. : No signs and/or symptoms were reported regarding the genitourinary system. EENT: No signs and/or symptoms were reported regarding the EENT system. Derm: Skin is intact, is healthy with good turgor, Skin temperature is warm. Musculoskeletal: Circulation, motion, and sensation intact. Capillary refill < 3 seconds. 07:05 Reassessment: Patient appears in no apparent distress at this time. Patient is alert, rr5 oriented x 3, equal unlabored respirations, skin warm/dry/pink. discharge instruction given and explained without complaints made. Vital Signs: 06:00 BP 146 / 104; Pulse 88; Resp 19; Temp 99.5; Pulse Ox 99% ; Weight 82.55 kg; Height 4 rr5 ft. 11 in. (149.86 cm); Pain 4/10; 07:06 BP 144 / 92; Pulse 79; Resp 16; Pulse Ox 99% on R/A; rr5 06:00 Body Mass Index 36.76 (82.55 kg, 149.86 cm) rr5 ED Course: 05:46 Patient arrived in ED. ag3 06:02 Andrea Aragon NP is PHCP. pm1 06:02 Willy Zuniga MD is Attending Physician. pm1 06:02 Arm band placed on right wrist. rr5 06:10 Flu and/or RSV swab sent to lab. Strep swab sent to lab. covid 19. rr5 06:22 Nathan Herrera, RN is Primary Nurse. rr5 06:26 Triage completed. rr5 06:28 Patient has correct armband on for positive identification. Bed in low position. Call rr5 light in reach. 06:28 No provider procedures requiring assistance completed. rr5 07:06 Patient did not have IV access during this emergency room visit. rr5 07:17 Primary Nurse role handed off by Nathan Herrera, RN hb Administered Medications: 06:23 Drug: Tylenol 1000 mg Route: PO; rr5 07:04 Follow up: Response: No adverse reaction rr5 07:11 Drug: Tamiflu 75 mg Route: PO; hb 07:11 Follow up: Response: Medication administered at discharge. Outcome: 07:04 Discharge ordered by . pm1 07:06 Discharged to home ambulatory. rr5 07:06 Condition: stable 07:06 Discharge instructions given to patient, Instructed on discharge instructions, follow up and referral plans. Demonstrated understanding of instructions, follow-up care. 07:06 Prescriptions given X 1. rr5 07:06 Instructed on medication usage, Demonstrated understanding of medications. 07:13 Patient left the ED. rr5 07:19 Patient left the ED. Signatures: Andrea Aragon, FAROOQ SMALL BUSINESS CONSULTANT pm1 Blaire Rico RN RN Ana Casillas 3 Nathan Herrera, RN RN rr5
--- NOTE | 2020-02-01 07:05 | EDPHYS ---
Physician Documentation [facility] Name: Renea Mcmahan Age: 54 yrs Sex: Female : 1965 Arrival Date: 02/01/2020 Time: 05:46 Bed 6 Private MD: ED Physician Willy Zuniga HPI: 01/31 06:23 This 54 yrs old Black Female presents to ER via Ambulatory with complaints of Fever. pm1 06:23 The patient or guardian reports cough, with no sputum, flu symptoms, Body aches, nausea.pm1 06:23 Onset: The symptoms/episode began/occurred today. Severity of symptoms: in the pm1 emergency department the symptoms are unchanged. Modifying factors: The symptoms are alleviated by nothing, the symptoms are aggravated by nothing. Associated signs and symptoms: Pertinent positives: fever, congestion, cough, body aches, Pertinent negatives: chest pain, diarrhea, sore throat, vomiting, shortness of breath. The patient has not recently seen a physician, the patient's primary care provider is Dr. Garcia. LUMBER STRAIGHTENED: 06:30 LMP 01/22/2020 rr5 Historical: - Allergies: 06:00 No Known Allergies; rr5 - Home Meds: 06:00 amlodipine oral [Active]; losartan-hydrochlorothiazide oral oral [Active]; rr5 - PMHx: 06:00 Hypertension; rr5 - PSHx: 06:00 ; Tonsillectomy; rr5 - Immunization history:: Adult Immunizations up to date. - Social history:: Smoking status: unknown Patient/guardian denies using alcohol, street drugs, tobacco products. ROS: 06:23 Eyes: Negative for injury, pain, redness, and discharge, ENT: Negative for injury, pm1 pain, and discharge, Neck: Negative for injury, pain, and swelling, Cardiovascular: Negative for chest pain, palpitations, and edema. 06:23 Back: Negative for injury and pain, : Negative for injury, bleeding, discharge, and swelling, MS/Extremity: Negative for injury and deformity, Skin: Negative for injury, rash, and discoloration, Neuro: Negative for headache, weakness, numbness, tingling, and seizure. 06:23 Constitutional: Positive for body aches, chills, fever, Negative for poor PO intake. 06:23 Respiratory: Positive for cough, Negative for shortness of breath, sputum production, wheezing. 06:23 Abdomen/GI: Positive for nausea, Negative for abdominal pain, vomiting, diarrhea, constipation. Exam: 06:23 Constitutional: This is a well developed, well nourished patient who is awake, alert, pm1 and in no acute distress. Head/Face: Normocephalic, atraumatic. 06:23 Skin: Warm, dry with normal turgor. Normal color with no rashes, no lesions, and no evidence of cellulitis. MS/ Extremity: Pulses equal, no cyanosis. Neurovascular intact. Full, normal range of motion. 06:23 Cardiovascular: Exam negative for acute changes, Rate: normal, Rhythm: regular, Pulses: no pulse deficits are appreciated. 06:23 Respiratory: Exam negative for acute changes, respiratory distress, shortness of breath, wheezing. 06:23 Abdomen/GI: Inspection: abdomen appears normal, Palpation: abdomen is soft and non-tender, in all quadrants. 06:23 Neuro: Exam negative for acute changes, Orientation: is normal, Mentation: is normal, Motor: is normal, moves all fours. Vital Signs: 06:00 BP 146 / 104; Pulse 88; Resp 19; Temp 99.5; Pulse Ox 99% ; Weight 82.55 kg; Height 4 rr5 ft. 11 in. (149.86 cm); Pain 4/10; 07:06 BP 144 / 92; Pulse 79; Resp 16; Pulse Ox 99% on R/A; rr5 06:00 Body Mass Index 36.76 (82.55 kg, 149.86 cm) rr5 MDM: 06:06 Patient medically screened. pm1 06:23 ED course: Patient reports nausea is manageable and does not want any medications for pm1 it. 07:02 Data reviewed: vital signs. Data interpreted: Pulse oximetry: on room air is 99 %. pm1 Interpretation: normal. Counseling: I had a detailed discussion with the patient and/or guardian regarding: the historical points, exam findings, and any diagnostic results supporting the discharge/admit diagnosis, lab results, the need for outpatient follow up, Pending covid results and need for quarantine, to return to the emergency department if symptoms worsen or persist or if there are any questions or concerns that arise at home. 01/31 05:52 Order name: COVID-19 rr5 01/31 05:53 Order name: COVID-19 01/31 05:53 Order name: Flu; Complete Time: 07:02 ss 01/31 05:53 Order name: Strep; Complete Time: 07:02 01/31 05:52 Order name: Document PUI#; Complete Time: 07:05 rr5 01/31 05:52 Order name: Droplet/Contact Precautions; Complete Time: 06:23 rr5 01/31 05:52 Order name: Labs collected and sent; Complete Time: 06:23 rr5 01/31 05:52 Order name: Not[facility] [phone]/ ; Complete Time: 07:05 rr5 01/31 05:52 Order name: O2 Per Protocol; Complete Time: 06:49 rr5 01/31 07:07 Order name: Throat Culture EDMS Administered Medications: 06:23 Drug: Tylenol 1000 mg Route: PO; rr5 07:04 Follow up: Response: No adverse reaction rr5 07:11 Drug: Tamiflu 75 mg Route: PO; hb 07:11 Follow up: Response: Medication administered at discharge. Disposition: 02/01/20 07:04 Discharged to Home. Impression: Influenza due to identified novel influenza A virus. - Condition is Stable. - Discharge Instructions: Fever, Adult, Influenza, Adult. - Prescriptions for Tamiflu 75 mg Oral Capsule - take 1 tablet by ORAL route every 12 hours for 5 days; 10 tablet. - Medication Reconciliation Form, Thank You Letter, Antibiotic Education, Prescription Opioid Use form. - Follow up: Emergency Department; When: As needed; Reason: Worsening of condition. Follow up: Private Physician; When: 2 - 3 days; Reason: Recheck today's complaints, Continuance of care, Re-evaluation by your physician. - Problem is new. - Symptoms have improved. Addendum: 02/06/2020 07:08 Co-signature as Attending Physician, Willy Zuniga MD. r n Signatures: Dispatcher [employer] EDTX Willy Zuniga MD MD rn Smirch, Shelby, RN RN ss Andrea Aragon, PERSONAL LINES INSURANCE AGENT PERSONAL LINES INSURANCE AGENT pm1 Blaire Rico RN RN Nathan Herrera RN RN rr5 Corrections: (The following items were deleted from the chart) 01/31 05:53 05:53 Document PUI# ordered. [facility] 05:53 05:53 Droplet/Contact Precautions ordered. [facility] 05:53 05:53 Labs collected and sent ordered. [facility] 05:53 05:53 [facility] [phone]/ ordered. [facility] 05:54 05:53 Oxygen Per Protocol ordered. [facility] 07:13 07:04 02/01/2020 07:04 Discharged to Home. Impression: Influenza due to identified rr5 novel influenza A virus. Condition is Stable. Forms are Medication Reconciliation Form, Thank You Letter, Antibiotic Education, Prescription Opioid Use. Follow up: Emergency Department; When: As needed; Reason: Worsening of condition. Follow up: Private Physician; When: 2 - 3 days; Reason: Recheck today's complaints, Continuance of care, Re-evaluation by your physician. Problem is new. Symptoms have improved. pm1 07:19 07:13 02/01/2020 07:04 Discharged to Home. Impression: Influenza due to identified hb novel influenza A virus. Condition is Stable. Discharge Instructions: Fever, Adult, Influenza, Adult. Prescriptions for Tamiflu 75 mg Oral Capsule - take 1 tablet by ORAL route every 12 hours for 5 days; 10 tablet. and Forms are Medication Reconciliation Form, Thank You Letter, Antibiotic Education, Prescription Opioid Use. Follow up: Emergency Department; When: As needed; Reason: Worsening of condition. Follow up: Private Physician; When: 2 - 3 days; Reason: Recheck today's complaints, Continuance of care, Re-evaluation by your physician. Problem is new. Symptoms have improved. rr5
[2020-02-01 07:20] VITALS: TEMP 99.5; O2SAT 99
[2020-02-01 07:21] VITALS: BP 144/92
== END 2020-02-01 07:19 | disposition home or self-care (01) ==
LOC: ER 05:43
DX: U07.1 COVID-19 (principal); J10.1 Influenza due to other identified influenza virus with other respiratory manifestations; I10 Essential (primary) hypertension
CPT/HCPCS: 87070; 87081; 87804 ×2; 99283; U0001

== ENCOUNTER 2020-02-10 09:55 | Inpatient (IN) | payer OTHER ==
[2020-02-10] MEDS ORDERED: LOPERAMIDE HCL 2 MG CAPSULE PO PRN (11:00)
[2020-02-10] MEDS ORDERED: DIPHENHYDRAMINE 25 MG TAB/CAP PO PRN (11:00)
[2020-02-10] MEDS ORDERED: ACETAMINOPHEN 325 MG TABLET PO PRN (11:00)
[2020-02-10] MEDS ORDERED: ONDANSETRON 4 MG (ODT) TAB PO PRN (11:00)
[2020-02-10] MEDS ORDERED: POLYETHYL GLY 3350 17 GM/DOSE PO PRN (11:00)
[2020-02-10] MEDS: NACHLORIDE 0.45% 1,000 ML IV SCH (11:19)
--- OUTSIDE RECORDS SUMMARY | 2020-02-10 11:19 | XMS REPORT | Continuity of Care Document ---
:1965 Author Organization [facility] t Address [address] [place] [address] Care Team Providers Name Role Phone GABRIEL Attending Clinician Unavailable KALPESH Attending Clinician Unavailable Problems Condition Condition Condition Status Onset Resolution Last Treating Co mments Source Name Details Category Date Date Treatment Clinician Date LUMBAR Condition Active 2013-10-22 Mem oria SPRAIN AND 10-19 06:16:00 l STRAIN LUMBAR 00:00: Steele SPRAIN AND 00 STRAIN Active 10/19/2013 Condition [...] vers screening screening ity of for for [place] infections infections Ph ysici w/predomly w/predomly an [...] Date Source Never smoked tobacco (finding) [facility] Physicians Medications Ordered Filled Start Stop Current Ordering Indication Dosage Frequency Signature Comments Components Source Medication Medication Date Date Medication? Clinician (SIG) Name Name METHYLPREDN Yes Take as Mem oria ISOLONE 3-24 directed l (MARCI) 4 MG 00:00: Micky TABS 00 NAPROXEN Yes 1 tablet Memor ia 500 MG TABS 3-24 twice l 00:00: daily as Micky 00 needed for pain BACLOFEN 10 Yes 1 tablet Me moria MG TABS 3-24 every 8 l 00:00: hours as Micky needed for muscle spasms or tension LISINOPRIL 2012-07 Yes Two tabs Mem oria 20 MG TABS 2-19 PO qday l 00:00: Steele CARVEDILOL 2012-07 Yes One tab PO M emoria 25 MG TABS 2-19 BID l 00:00: Steele CHLORTHALID 2012-07 Yes One tab PO Memoria ONE 25 MG 1-20 qday l TABS 00:00: Micky ANTIVERT 25 2012-07 No One tab PO Memoria MG TABS 1-20 TID prn l 00:00: vertigo Steele 00 ZOFRAN 4 MG 2012-07 No One tab PO Memoria TABS 1-01 q6 hous l 00:00: prn nausea Steele FLUTICASONE 2012-07 No 2 sprays Me moria PROPIONATE 1-01 in each l 50 MCG/ACT 00:00: nostril Herm duke SUSP 00 qam1 ANTIPYRINE- 2012-07 No Memori a BENZOCAINE 1-01 l 54-14 MG/ML 00:00: Elie n SOLN 00 Norvasc Norvasc Yes M.A. [facility] TABS TABS ity of [place] Physic ans Vital Signs Vital Name Observation Time Observation Value Comments Source Systolic blood 2019-10-19 130 mm[Hg] Location: [facility] 15:08:00 Position: [place] Physician s Sitting Diastolic blood 2019-10-19 80 mm[Hg] Location: [facility] 15:08:00 Position: [place] Physician s Sitting Body height 2019-10-19 59 [in_us] [facility] 15:08:00 [place] Physician s Weight 2019-10-19 176 [lb_av] [facility] 15:08:00 [place] Physician s Body mass index 2019-10-19 35.55 kg/m2 University o f (BMI) [Ratio] 15:08:00 [place] Physicwi ns Body temperature 2019-10-19 98.2 [degF] Method: Oral [facility] 15:08:00 [place] Physician s Heart Rate 2019-10-19 62 /min [facility] 15:08:00 [place] Physician s Weight 2013-10-19 [facility] [...] Mak Land ermann 15:00:06 Heart Rate 2013-05-29 [facility] Elie n 15:00:06 Procedures Procedure Date / Time Performing Clinician Source Performed . [facility] - PAP 2019-10-19 00:00:00 [place] [facility] Physicians US Pelvis with Pelvis 2019-10-19 00:00:00 [facility] Transvaginal [id number] Physicians History of [place] [facility] section Physicians Encounters Start End Encounter Admission Attending Care Care Encounter Source Date/Time Date/Time Type Type Clinicians Facility Department ID 2019-10-19 2019-10-19 AppointANUEL [facility] [id number] [facility] 14:30:00 14:30:00 t; LUKAS RIOS M.D. [facility] Roberto Physici ans 2019-08-07 2019-08-07 ANUEL Phillips [facility] [id number] [facility] 13:15:00 13:15:00 t; conner MARVIN M.D. [place] [facility], Physici M.D. ans 2019-07-27 2019-07-27 ANUEL Phillips [facility] [id number] [facility] 09:00:00 09:00:00 t; conner MARVIN M.D. [place] [facility], Physici M.D. ans 2018-02-28 2018-02-28 [facility] [id number] 08:28:00 08:28:00 [facility] Clin[facility] Results Test Description Test Time Test Comments Results Result Comments Source . [facility] - PAP 2019-10-19 00:00:00 Test Item Value Reference Range Interpretation Comme nts Case (test code = Case) Click ImageLink button for report. N [facility] Physicians
--- OUTSIDE RECORDS SUMMARY | 2020-02-10 11:19 | XMS REPORT | Continuity of Care Document ---
:1965 Author Organization [employer] Care Team Providers Name Role Phone [employer] Unavailable Un available Problems Problem Status Onset [...] Location Location Encounter Encounter Reason Attending ADM [facility] Stat us Source Details Type Number For Provider Date Date Visit [facility] [id number] Fidencio 10/19 10/19 Shanda Dawn MD /2013 [facility] Lab Report [id number] Fidencio 10/22 10/22 EVERTON Dawn MD /2013 [facility] [place] Procedures No Data Provided for This Section [...]
[2020-02-10 11:26] VITALS: BMI 36.7
[2020-02-10 11:30] LABS: Arterial Blood Carboxyhemoglob 1.3 % (0-1.5); Blood Gas Oxyhemoglobin 93.9 % (94-97); Blood O2 Saturation 96.2 % (92-98.5)
[2020-02-10 12:24] LABS: Absolute Lymphocytes (CBC) 1.7 K/uL (0.7-4.9); Basophils % 0.9 % (0-1.3); Lymphocytes % 29.8 % (15.3-44.8); MPV 8.6 fL (7.6-11.3); RBC Red Blood Cell Count 4.64 M/uL (3.86-4.86)
[2020-02-10 12:37] LABS: Magnesium 2.5 mg/dL (1.8-2.4); Potassium 3.8 mmol/L (3.5-5.1)
--- NOTE | 2020-02-10 12:40 | RAD REPORT ---
EXAM DESCRIPTION: CT - Chest Angio - 02/10/2020 12:28 pm CLINICAL HISTORY: Chest pain, shortness of breath, possible pulmonary embolism, positive COVID-19 COMPARISON: No comparisons TECHNIQUE: Dynamically enhanced 3 mm thick images of the chest were obtained during administration o f approximately 150mL Isovue 370 IV contrast. Coronal and oblique MIP reconstruction images were gene rated and reviewed. Exam utilizes a protocol to evaluate the pulmonary arterial tree. All CT scans are performed using dose optimization technique as appropriate and may include automated exposure control or mA/KV adjustment according to patient size. FINDINGS: No pulmonary emboli are identified. The aorta as imaged shows no acute or suspicious finding. No pericardial thickening or effusion. Ground-glass opacification scattered throughout lobes of both lung park, more peripheral than centr al with no dense consolidation, mass or cavitation. This is a well described COVID-19 pneumonia patte rn. No pleural effusion or pleural thickening. No mediastinal or hilar suspicious masses. No chest wall masses or abnormal axillary lymphadenopathy. IMPRESSION: No pulmonary emboli identified. Moderate severity COVID-19 pneumonia pattern seen as ground-glass opacification scattered throughout all lobes.
[2020-02-10] MEDS: dexAMETHasone 4 MG/ML VIAL IV SCH ×2 (13:21→20:25)
[2020-02-10] MEDS: ALBUTEROL INHALER 60 PUFF/8 GM IH SCH ×3 (13:21→20:25)
[2020-02-10 13:29] LABS: Urine Appearance CLEAR; Urine Bilirubin NEGATIVE (NEG); Urine Blood NEGATIVE (NEG); Urine Color YELLOW; Urine Glucose NEGATIVE (NEG); Urine Protein NEGATIVE (NEG); Urine Specific Gravity 1.025 (1.005-1.030); Urine pH 7.5 (5.0-7.0)
[2020-02-10] MEDS: HYDROMORPHONE HCL 1 MG/ML INJ IV PRN ×3 (13:48→23:52)
[2020-02-10 13:54] LABS: Albumin 3.6 g/dL (3.4-5.0); Bilirubin Direct 0.1 mg/dL (0-0.2); Bilirubin Total 0.5 mg/dL (0.2-1.0); Phosphorus 3.1 mg/dL (2.5-4.9); Protein, Total 7.7 g/dL (6.4-8.2); Thyroid Stimulating Hormone 0.298 uIU/mL (0.360-3.740)
[2020-02-10] MEDS: GLUTATHIONE PO SCH ×2 (14:00→20:25)
[2020-02-10 14:12] LABS: Urine Microscopic Reflex NO UMIC
[2020-02-10] MEDS ORDERED: POTASSIUM CL SA 10 MEQ TAB PO ONE (18:00)
[2020-02-11] MEDS: CODEINE 30MG/APAP 300MG TAB PO PRN ×2 (03:21→20:55)
[2020-02-11 07:00] LABS: Absolute Lymphocytes (CBC) 1.6 K/uL (0.7-4.9); Basophils % 1.1 % (0-1.3); Hematocrit 38.5 % (36.0-45.0); Lymphocytes % 22.9 % (15.3-44.8); MPV 8.7 fL (7.6-11.3); RBC Red Blood Cell Count 4.53 M/uL (3.86-4.86)
[2020-02-11 07:11] LABS: Magnesium 2.4 mg/dL (1.8-2.4); Potassium 4.3 mmol/L (3.5-5.1)
--- NOTE | 2020-02-11 07:24 | EKG ---
Test Date: 2020-02-10 Test Time: 14:00:38 [employer] Developer: EMMANUEL MEASUREMENT RESULTS: Intervals: Rate: 62 RI: 162 QRSD: 84 QT: 394 QTc: 399 [place]: P: 41 RI: 162 QRS: 54 T: 37 INTERPRETIVE STATEMENTS: Normal sinus rhythm Normal ECG Compared to ECG 11/26/2018 07:55:42 Sinus bradycardia no longer present Electronically Signed On 02-11-20 07:23:02 CDT by Ángel Mullen
[2020-02-11] MEDS: AMLODIPINE 5 MG TAB PO SCH ×2 (08:31→08:59)
[2020-02-11] MEDS: dexAMETHasone 4 MG/ML VIAL IV SCH ×3 (08:31→20:55)
[2020-02-11] MEDS: ENOXAPARIN 40 MG/0.4 ML SQ SCH (08:31)
[2020-02-11] MEDS: ASCORBIC ACID 500 MG TABLET PO SCH ×2 (08:31→09:00)
[2020-02-11] MEDS: VALSARTAN 160 MG TAB PO SCH ×2 (08:31→09:00)
[2020-02-11] MEDS: GLUTATHIONE PO SCH ×3 (08:32→20:56)
[2020-02-11] MEDS: ALBUTEROL INHALER 60 PUFF/8 GM IH SCH ×4 (08:52→20:57)
[2020-02-11] MEDS: AZITHROMYCIN IV 500 MG in NA CHLORIDE 0.9% 250 ML IVPB SCH (09:00)
[2020-02-11] MEDS ORDERED: HOME MED 1 EA UNK (Olmesartan Medoxomil [Olmesartan Medoxomil] 40 MG) PO SCH (09:00)
[2020-02-11] MEDS: ONDANSETRON 4 MG/2 ML VIAL IV PRN ×2 (10:27→18:15)
[2020-02-11] MEDS: HYDROMORPHONE HCL 1 MG/ML INJ IV PRN (12:40)
[2020-02-11] MEDS: NACHLORIDE 0.45% 1,000 ML IV SCH (18:34)
--- NOTE | 2020-02-12 02:05 | PN ---
Subjective: Ms. Mcmahan is slightly better. She is still short of breath at rest, lying down makes he r more short of breath according to her. I have talked to her on TeleVisit. Physical Examination: General: She looks comfortable, but is short of breath at rest. Vital Signs: Blood pressure 117/76, temperature 96.8. Otherwise, clinical exam per nursing examination. Laboratory Data: On lab examination, white count 7000, hemoglobin stable, platelets are stable. Danica m-7 is normal. Assessment And Planning: COVID-19 related pneumonia. Continue steroids IV. Continue inhaler. Cont inue Zithromax IV. Possible discharge tomorrow. She is not comfortable going home today. I have ex plained to her it will take at least 3-4 weeks to recover from this illness. MANUELD/MODL Voice ID: [id number] Report ID: [id number]
[2020-02-12 05:04] VITALS: O2SAT 98
[2020-02-12 06:37] LABS: Absolute Lymphocytes (CBC) 1.7 K/uL (0.7-4.9); Basophils % 0.2 % (0-1.3); Hematocrit 37.7 % (36.0-45.0); Lymphocytes % 16.2 % (15.3-44.8); MPV 8.5 fL (7.6-11.3); RBC Red Blood Cell Count 4.45 M/uL (3.86-4.86)
[2020-02-12 06:55] LABS: Magnesium 2.3 mg/dL (1.8-2.4); Potassium 4.2 mmol/L (3.5-5.1)
[2020-02-12] MEDS: AZITHROMYCIN IV 500 MG in NA CHLORIDE 0.9% 250 ML IVPB SCH (08:05)
[2020-02-12] MEDS: ASCORBIC ACID 500 MG TABLET PO SCH (08:07)
[2020-02-12] MEDS: dexAMETHasone 4 MG/ML VIAL IV SCH (08:08)
[2020-02-12] MEDS: ENOXAPARIN 40 MG/0.4 ML SQ SCH (08:08)
[2020-02-12] MEDS: VALSARTAN 160 MG TAB PO SCH (08:09)
[2020-02-12] MEDS: AMLODIPINE 5 MG TAB PO SCH (08:10)
[2020-02-12] MEDS: GLUTATHIONE PO SCH (08:27)
[2020-02-12] MEDS: ALBUTEROL INHALER 60 PUFF/8 GM IH SCH ×2 (08:27→12:29)
[2020-02-12 12:13] VITALS: BP 135/89; TEMP 97.1
--- NOTE | 2020-02-12 21:46 | P.DS ---
Admission Date: 02/10/20 Discharge Date: 02/12/20 Disposition: ROUTINE DISCHARGE Discharge Condition: [facility] Hospital Course: JAROCHO CALLED AND TOLD ME THAT SHE WAS DYSPENIC. I DID TELEVISIT WITH HER AND DECIDED TO ADMIT HER SHE WAS DYSPNEIC, SHE IS NOW STABLIZED ON STEROIDS, ORAL ANTICOAGULATION FOR PROPHYLAXIS AND INHALER. SHE IS DISCHARGED IN STABLE CONDITION. I WILL SEND ORDER FOR NEBULIZED BUDESONIDE AND TRICOR THERE ARE SOME STUDIES TO SUPPORT THEM. STABLE AT DISCHARGE. Vital Signs/Physical Exam: Temp Pulse Resp BP Pulse Ox 97.1 F 68 20 135/89 94 02/12/20 12:11 02/12/20 12:11 02/12/20 12:11 02/12/20 12:11 02/12/20 12:11 Laboratory Data at Discharge: WBC 10.3 K/uL (4.3-10.9) D 02/12/20 06:05 Hgb 12.6 g/dL (12.0-15.0) 02/12/20 06:05 Hct 37.7 % (36.0-45.0) 02/12/20 06:05 Plt Count 328 K/uL (152-406) 02/12/20 06:05 APTT 32.2 SECONDS (24.3-36.9) 02/10/20 11:50 Sodium Cancelled 02/12/20 10:46 Potassium Cancelled 02/12/20 10:46 BUN Cancelled 02/12/20 10:46 Creatinine Cancelled 02/12/20 10:46 Glucose Cancelled 02/12/20 10:46 Phosphorus 3.1 mg/dL (2.5-4.9) 02/10/20 11:50 Magnesium 2.3 mg/dL (1.8-2.4) 02/12/20 06:05 Total Bilirubin 0.5 mg/dL (0.2-1.0) 02/10/20 11:50 AST 24 U/L (15-37) 02/10/20 11:50 ALT 26 U/L (12-78) 02/10/20 11:50 Alkaline Phosphatase 74 U/L (45-117) 02/10/20 11:50 Troponin I < 0.02 ng/mL (0.0-0.045) 02/11/20 05:15 Home Medications: Amlodipine [Norvasc*] 5 mg PO DAILY 11/25/18 Olmesartan Medoxomil 40 mg PO DAILY 12/06/19 Codeine/APAP [Tylenol W/Codeine #3 tab] 1 tab PO Q4HP PRN #30 tab 12/07/19 NaCl 0.9% Irr Bottle [Ns Irrigation Bottle] 1,000 ml IR DAILY #1 btl 12/07/19 Sulfamethoxazole/Trimethoprim [Bactrim Ds Tablet] 1 each PO BID #12 tablet 12/07/19 Rivaroxaban [Xarelto*] 10 mg PO DAILY 02/10/20 ALPRAZolam [Alprazolam] 0.25 mg PO DAILYPRN PRN #30 tablet 02/11/20 Azithromycin Tab [Zithromax*] 250 mg PO ZPAK #1 kelly 02/11/20 Fluticasone/Salmeterol [Advair 250-50 Diskus] 1 each IH DAILY #1 blst.w.dev 02/11/20 New Medications: Fluticasone/Salmeterol [Advair 250-50 Diskus] 1 each IH DAILY #1 blst.w.dev ALPRAZolam [Alprazolam] 0.25 mg PO DAILYPRN PRN #30 tablet PRN Reason: Anxiety Azithromycin Tab [Zithromax*] 250 mg PO ZPAK #1 kelly Patient Discharge Instructions: CONTINUE DEXAMETHASON YOU HAVE DAILY. CONTINUE XARELTO YOU HAVE. SEND XANAX FOR ANXIETY, ZITHROMAX AND [facility]IR [facility] Diet: Regular
[2020-02-14 23:37] LABS: Vitamin D 1,25-Dihydroxy Total 132 pg/mL (18-72); Vitamin D,1,25-OH2, D2 <8 pg/mL
== END 2020-02-12 13:20 | disposition home or self-care (01) | DRG 177 ==
LOC: 4TH 09:55
PROVIDERS: ADMIT Internal Medicine; ATTEND Internal Medicine
DX: U07.1 COVID-19 (principal); J12.89 Other viral pneumonia; J10.08 Influenza due to other identified influenza virus with other specified pneumonia; I10 Essential (primary) hypertension; Z86.14 Personal history of Methicillin resistant Staphylococcus aureus infection; Z79.01 Long term (current) use of anticoagulants; Z79.899 Other long term (current) drug therapy
CPT/HCPCS: 36415; 71275; 80048; 80076; 81003; 82565; 82607; 82652; 82805; 83735; 83880; 84100; 84145; 84443; 84484; 85025; 85379; 85730; 87040; 87205; 93005; 94760; J0456; J1170; J1650; J2405; J7050; Q9967